=== PATIENT | male | born 1965 | race Caucasian/White ===

== ENCOUNTER 2016-10-28 18:26 | Inpatient (IN) ==
[2016-10-28] MEDS ORDERED: APRESOLINE IV ONE (19:19)
[2016-10-28 19:26] LABS: MANUAL DIFF NEEDED? NO
[2016-10-28 19:33] LABS: BASO% 0.5 % (0.0-0.8); EOS# 0.09 X1000 (0.0-0.7); EOS% 1.6 % (0.0-10.0); HEMATOCRIT 34.3 % (42.0-52.0); HEMOGLOBIN 12.3 g/dL (14.0-18.0); IMM GRAN# 0.02 X1000 (0.0-0.04); IMM GRAN% 0.3 % (0.0-0.5); LYMPH# 1.23 X1000 (1.2-3.4); LYMPH% 21.3 % (20.5-51.1); MCH 29.4 PG (27-31); MCHC 35.9 g/dL (33-37); MCV 82.1 FL (81-99); MONO# 0.44 X1000 (0.11-0.59); MONO% 7.6 % (1.7-9.3); MPV 9.5 FL (7.4-10.4); NEUT% 68.7 % (42.2-75.2); PLT 152 X1000 (130-400); RBC 4.18 XMIL (4.7-6.1)
[2016-10-28 19:43] LABS: INR 0.95 (0.86-1.15)
[2016-10-28 19:44] LABS: PTT PL 28.2 Seconds (22.6-43.9)
[2016-10-28 19:47] LABS: AGAP 10; ALBUMIN 3.6 g/dL (3.5-5.0); ALKALINE PHOSPHATASE 84 U/L (32-122); BUN 13 mg/dL (8-22); CALCIUM 8.8 mg/dL (8.8-10.2); CHLORIDE 79 mmol/L (98-107); COSMO 231; GOT 21 U/L (10-34); GPT 16 U/L (10-44); POTASSIUM 3.9 mmol/L (3.5-5.1); SODIUM 114 mmol/L (136-145); TCO2 25 mmol/L (25-35); TOTAL PROTEIN 5.7 g/dL (6.3-8.3)
[2016-10-28 19:50] LABS: URINE CULTURE PL NEEDED? NO
[2016-10-28 20:06] LABS: UR AMPHETAMINES QUAL NONE DETECTED (NONE DETECT); UR BARBITUATES QUAL NONE DETECTED (NONE DETECT); UR BENZODIAZEPIN QUAL PRESUMPTIVE POSITIVE (NONE DETECT); UR CANNABINOIDS QUAL NONE DETECTED (NONE DETECT); UR COCAINE QUAL NONE DETECTED (NONE DETECT); UR MDMA QUAL NONE DETECTED (NONE DETECT); UR METHADONE QUAL NONE DETECTED (NONE DETECT); UR METHAMPHETAMINE QUAL NONE DETECTED (NONE DETECT); UR OPIATES QUAL NONE DETECTED (NONE DETECT); UR OXYCODONE QUAL NONE DETECTED (NONE DETECT); UR PCP QUAL NONE DETECTED (NONE DETECT); UR TCA QUAL NONE DETECTED (NONE DETECT)
[2016-10-28 20:07] LABS: BILIRUBIN URINE NEGATIVE (NEGATIVE); BLOOD URINE NEGATIVE (NEGATIVE); CLARITY CLEAR (CLEAR); COLOR YELLOW; GLUCOSE URINE NEGATIVE (NEGATIVE); LEUKOCYTES URINE NEGATIVE (NEGATIVE); NITRITE URINE NEGATIVE (NEGATIVE); PH URINE 6.5; PROTEIN URINE 2+(100 mg/dL) mg/dL (NEGATIVE); SP GRAVITY URINE 1.015; UROBILINOGEN URINE 1+(1 mg/dL)
[2016-10-28 20:12] LABS: URINE EPITHELIAL CELLS <10 /HPF (<10); URINE RBC <10 /HPF (<10); URINE SOURCE CLEAN CATCH; URINE WBC <10 /HPF (<10)
--- NOTE | 2016-10-28 20:32 | EKG Report ---
Test Performed on : 10/28/2016 7:10:22 PM Test Reason : chest pain Blood Pressure : / mmHG Vent. Rate : 089 BPM Atrial Rate : 089 BPM P-R Int : 168 ms QRS Dur : 096 ms QT Int : 380 ms P-R-T Axes : 067 048 091 degrees QTc Int : 462 ms Normal sinus rhythm. Possible Left atrial enlargement Left ventricular hypertrophy with repolarization abnormality Abnormal ECG When compared with ECG of 24-JAN-2012 12:26, No significant change was found Unconfirmed Result
[2016-10-28] MEDS ORDERED: NS 1,000 ML ONE (20:44)
[2016-10-28] MEDS ORDERED: NS 1,000 ML IV ONE ×3 (20:47→22:07)
[2016-10-28] MEDS ORDERED: LABETALOL IV ONE (21:35)
[2016-10-28] MEDS ORDERED: DUONEB (A & A) ONE (22:24)
[2016-10-28] MEDS: DUONEB (A & A) INH SCH ×2 (22:28→23:19)
[2016-10-28] MEDS ORDERED: CATAPRES PO PRN (22:42)
[2016-10-29] MEDS: DUONEB (A & A) INH SCH ×5 (04:21→19:45)
--- NOTE | 2016-10-29 07:22 | Diag Imaging Result Document ---
PROCEDURE NAME: HEAD W/O CONTRAST - 10/28/2016 CT BRAIN WITHOUT CONTRAST: FINDINGS: No parenchymal hemorrhage. No epidural or subdural hematoma. No subarachnoid hemorrhage. Old left parietal infarct and temporal infarct. Small old infarct in the right frontoparietal region. Small old left cerebellar infarct. No hydrocephalus. No sinus opacification. No air fluid levels. IMPRESSION: 1. No hemorrhage. 2. Multiple old infarcts. A preliminary report was given at 8:18 p.m.
--- NOTE | 2016-10-29 08:11 | Diag Imaging Result Document ---
PROCEDURE NAME: RIBS UNILAT W/PA CHEST RIGHT - 10/28/2016 RIGHT RIBS AND PA CHEST, 5 VIEWS: COMPARISON: Compared with chest two-views of 02/03/2012. FINDINGS: There is a possible nondisplaced fracture of the lateral right 5th rib. There is no other right rib fracture identified. Heart size is normal. There is tortuosity or ectasia of the ascending aorta. The lungs appear clear. There is no pleural effusion or pneumothorax seen. IMPRESSION: Possible nondisplaced fracture of lateral right 5th rib. No other evidence of acute disease.
[2016-10-29 09:51] LABS: MANUAL DIFF NEEDED? NO
[2016-10-29 09:56] LABS: BASO% 0.2 % (0.0-0.8); EOS# 0.07 X1000 (0.0-0.7); EOS% 1.3 % (0.0-10.0); HEMATOCRIT 32.3 % (42.0-52.0); HEMOGLOBIN 11.3 g/dL (14.0-18.0); IMM GRAN# 0.01 X1000 (0.0-0.04); IMM GRAN% 0.2 % (0.0-0.5); LYMPH# 0.57 X1000 (1.2-3.4); LYMPH% 10.6 % (20.5-51.1); MCH 28.8 PG (27-31); MCV 82.4 FL (81-99); MONO# 0.17 X1000 (0.11-0.59); MONO% 3.2 % (1.7-9.3); NEUT% 84.5 % (42.2-75.2); PLT 158 X1000 (130-400); RBC 3.92 XMIL (4.7-6.1)
[2016-10-29 10:24] LABS: AGAP 12; BUN 14 mg/dL (8-22); CALCIUM 8.1 mg/dL (8.8-10.2); CHLORIDE 85 mmol/L (98-107); COSMO 251; POTASSIUM 3.1 mmol/L (3.5-5.1); SODIUM 121 mmol/L (136-145); TCO2 24 mmol/L (25-35)
--- NOTE | 2016-10-29 11:04 | HISTORY AND PHYSICAL ---
PRIMARY CARE PHYSICIAN: None. CHIEF COMPLAINT: Frequent falls. HISTORY OF PRESENTING ILLNESS: This is a 51-year-old male, who presented to [facility] ER after he states he had a fall at home yesterday. Stated he did not lose consciousness and did not hit his head. His story is somewhat conflicting in that he states that he does not have a primary care physician, moved here from [place] approximately a year ago. States that he has not been taking his home medications, but stated something about getting them from his sister. It is unclear if she has his medications and has been dispensing them, but nonetheless he has not had any follow up. Apparently, had a stroke with right hemiparesis x2 a couple years ago. Has had decreased fine motor skills since then. Workup in the ER showed on arrival a blood pressure of 227/113. Laboratory data showed a sodium of 114 with a chloride of 79. Troponin was negative. Urine drug screen was presumptive positive for benzodiazepines. Again, he listed as a home medication Xanax 1 mg p.o. at bedtime, but it is unclear if he has been getting refills anywhere (he states no). So, in the ER it appears he was given 2 L of normal saline boluses, 10 mg labetalol IV x1, hydralazine 20 mg IV x1. He was admitted for further evaluation and treatment. PAST MEDICAL HISTORY: CVA with right hemiparesis, hypertension, anxiety and chronic pain. PAST SURGICAL HISTORY: None. FAMILY HISTORY: Noncontributory. SOCIAL HISTORY: Currently lives with family. He is a 2 pack-a-day smoker. Denied any alcohol or illicit drug use. ALLERGIES: To acetaminophen, butalbital, caffeine. HOME MEDICATIONS: It is unclear if this is a completed list of what he is currently taking or what he has been on in the past, but he listed: 1. Xanax 1 mg p.o. at bedtime. 2. Baxley 10 1 p.o. t.i.d. 3. Aspirin 81 mg p.o. at bedtime. 4. Catapres 0.1 mg p.o. at bedtime. 5. Lisinopril 10 mg p.o. at bedtime. LABORATORY DATA: Showed a white blood cell count of 5.78, hemoglobin 12.3, hematocrit 34.3, platelets 152. PT and INR of 13.0 and 0.95. Sodium of 114, potassium 3.9, chloride 79, CO2 25, BUN of 13, creatinine 0.8, glucose of 90. Troponin less than 0.010. Urinalysis was negative. Urine osmolality at 637, random sodium urine 130. Urine drug screen was presumptive positive for benzodiazepines. Serum alcohol level shows none detected. IMAGING DATA: CT of the head showed no hemorrhage and multiple old infarcts. Rib with chest x- ray showed an impression of a possible nondisplaced fracture of the lateral right fifth rib. No other evidence of acute disease. EKG with normal sinus rhythm at 89. REVIEW OF SYSTEMS: He denies any fever, chills, blurred vision, dizziness, chest pain, coughing, shortness of breath. He denies any constipation, diarrhea, burning, or hurting with urination. PHYSICAL EXAMINATION: VITAL SIGNS: On arrival, he had a temperature of 97.9 degrees, a pulse of 104, respirations 18, blood pressure 227/113. Currently he has a temperature of 97.8 degrees, pulse 88, respirations 18, blood pressure is 167/89, satting 99% on room air. GENERAL: This is a 51-year-old male, who is lying in the bed and answers questions appropriately, but answers are sometimes conflicting and difficulty to get a complete timeline of history. HEENT: Normocephalic and atraumatic. Pupils are equal, round, and reactive to light. The extraocular movements are intact. Oropharynx and nares are clear. NECK: Supple. LUNGS: Clear to auscultation bilaterally with equal lung expansion and chest wall movement. HEART: With regular rate and rhythm. No murmurs, rubs, or gallops. ABDOMEN: Soft, nontender, nondistended. Bowel sounds are present x4 quadrants. EXTREMITIES: There is no clubbing, cyanosis, or edema. NEUROLOGICAL: The cranial nerves 2-12 are grossly intact with noted right hemiparesis from his previous cerebrovascular accident. ASSESSMENT: 1. Accelerated hypertension, uncontrolled. 2. Hyponatremia. 3. A right fifth rib fracture. 4. Transient ischemic attack versus new cerebrovascular accident. 5. Fall. PLAN: He was admitted to the medical unit at [facility]. Placed on telemetry. Neuro checks q. 24 for 24 hours. Placed on a healthy heart diet. We are going to continue his home medication of Catapres 0.1 mg at bedtime and Prinivil 10 mg p.o. at bedtime, aspirin 81 mg p.o. at bedtime. We are going to hold the Xanax and Baxley routinely. We will give him some Baxley p.r.n. 10 mg q. 4 hours p.r.n. for his right rib fracture and pain. Continue his normal saline at 75 mL an hour. We will go ahead and check an MRI of his brain this morning to rule out the fall was caused from any new stroke, as it appears that he has not been taking his home medications appropriately. It is really unclear why his sodium had dropped. We are going to recheck a CBC, BMP this a.m. and repeat in the a.m. also. Dictated by NICHOL Padron for Leodan Chao MD cc: NICHOL Padron MD
--- NOTE | 2016-10-29 13:59 | Diag Imaging Result Document ---
PROCEDURE NAME: MRI BRAIN W/O CONTRAST - 10/29/2016 MRI BRAIN: COMPARISON: Head CT 10/28/2016. FINDINGS: There is no area of restricted diffusion. There are old cerebral infarctions at the lateral right frontal lobe, left parietal lobe, and left cerebellar hemisphere. There is moderate periventricular white matter chronic microvascular disease. No evidence of intracranial mass or hemorrhage. Midline structures are unremarkable. IMPRESSION: Bilateral old acute infarctions. Chronic microvascular disease. No acute disease.
[2016-10-29] MEDS ORDERED: DUONEB (A & A) INH PRN (17:33)
[2016-10-29] MEDS ORDERED: KLOR-CON PO ONE (17:40)
--- NOTE | 2016-10-29 18:02 | PROGRESS NOTE ---
DATE: 10/29/2016 SUBJECTIVE: Today Mr. Singh refers to be doing relatively fine but he is hurting. OBJECTIVE: Vital signs: Blood pressure is 147/81, pulse of 91, respiration is 20, temperature is 98.9 degrees. General: Mr. Singh is a 51-year-old male. He was in bed. He looks relatively dry. HEENT: Mucosa is pink but dry. Anicteric and acyanotic. Neck: Supple. Chest: There is diffuse bilateral wheezing in both lungs. No crepitations. Cardiovascular: Regular rate and rhythm. No murmurs, no rubs, no gallops. Abdomen: Soft, nontender. Extremities: No pedal edema. GUN WELDER: Patient is alert. Does have a little stuttering in the speech but he seems to follow commands. Musculoskeletal: There is some tenderness over the left posterior ribcage. GUN WELDER: There is also about 4- power in the right upper extremity. Left side is normal power 5/5. LABORATORY DATA: WBC is 5.39, hemoglobin is 11.3, platelet count of 158,000. Chemistry is reviewed. Sodium is up to 131, potassium is 3.1, chloride is 85, bicarb is 24. Glucose is 207. The calcium is 81. ASSESSMENT: Mr. Singh was brought in last night status post fall, upon presentation was found to be severely dehydrated with a sodium of 114. ASSESSMENT: 1. Status post fall. Chest x-ray shows possible nondisplaced fracture of the lateral right 5th rib. No pneumothorax. No pleural effusions. We are going to continue with pain management. 2. Severe hypertension (hypertensive urgency on presentation). The patient's blood pressure was 227/113 when he hit the door. He is currently much better. We will continue with the current blood pressure medications. 3. Clinical dehydration. 4. Hyponatremia in the context of upon volume depletion. We are going to continue with IV fluids until patient is euvolemic and then we can reassess. 5. History of previous CVA with mild right-sided hemiparesis. An MRI which was done today shows bilateral old acute infarcts. There is no acute disease. 6. Bronchospasm. Patient has a history of more than 20 pack years and I am suspecting he does have underlying COPD which probably has not been diagnosed. We are going to continue with nebulization and chest physical therapy with incentive spirometer to help with the bronchospasm. We would advise the patient to follow up with Pulmonary Medicine. 7. Tobacco abuse. Patient has been counseled and will offer nicotine patch. 8. Hypocalcemia. I suspect patient probably has an underlying vitamin D deficiency as well. I will go ahead and check on that and correct it if necessary. 9. Hypokalemia. We will replace. cc: Leodan Chao MD
[2016-10-29] MEDS: NS 1,000 ML IV SCH (18:15)
[2016-10-29] MEDS: CATAPRES PO SCH (20:28)
[2016-10-29] MEDS: ASPIRIN EC PO SCH (20:28)
[2016-10-29] MEDS: PRINIVIL PO SCH (20:28)
[2016-10-29] MEDS ORDERED: XANAX PO SCH (21:00)
[2016-10-29] MEDS: XANAX PO SCH (21:47)
[2016-10-30] MEDS: DUONEB (A & A) INH SCH ×6 (04:19→22:55)
[2016-10-30 06:10] LABS: MANUAL DIFF NEEDED? NO
[2016-10-30 06:39] LABS: BASO% 0.5 % (0.0-0.8); EOS# 0.13 X1000 (0.0-0.7); EOS% 3.2 % (0.0-10.0); HEMATOCRIT 30.7 % (42.0-52.0); HEMOGLOBIN 10.8 g/dL (14.0-18.0); LYMPH# 0.86 X1000 (1.2-3.4); LYMPH% 21.3 % (20.5-51.1); MCH 29.1 PG (27-31); MCHC 35.2 g/dL (33-37); MCV 82.7 FL (81-99); MONO# 0.33 X1000 (0.11-0.59); MONO% 8.2 % (1.7-9.3); NEUT% 66.8 % (42.2-75.2); PLT 172 X1000 (130-400); RBC 3.71 XMIL (4.7-6.1)
[2016-10-30 07:25] LABS: AGAP 10; BUN 12 mg/dL (8-22); CALCIUM 8.3 mg/dL (8.8-10.2); CHLORIDE 89 mmol/L (98-107); COSMO 243; POTASSIUM 4.2 mmol/L (3.5-5.1); SODIUM 121 mmol/L (136-145); TCO2 22 mmol/L (25-35)
[2016-10-30] MEDS: VITAMIN D PO SCH (08:40)
[2016-10-30] MEDS: NORCO-10 PO PRN ×4 (08:49→23:40)
[2016-10-30] MEDS: NS 1,000 ML IV SCH (10:28)
[2016-10-30] MEDS ORDERED: SAMSCA PO ONE (11:13)
--- NOTE | 2016-10-30 12:03 | PROGRESS NOTE ---
DATE: 10/30/2016 SUBJECTIVE: When I evaluated this patient he was sitting on the bed. He was eating. He is not having problems eating. He denies nausea, vomiting, diarrhea, constipation. He is alert and oriented x3. He has a history of CVA 2-1/2 years ago with right-sided weakness around 3/5. He states that the reason why he came was because he fell and he got a fracture on the right 5th rib. He denied any dizziness or palpation previous to the fall. OBJECTIVE: Vital Signs: Temperature 98.6. Pulse 93, respiratory rate 20, blood pressure 144/90, O2 saturation 96 on room air. General: Overall this patient looks good, hydrated. He is still complaining of mild right chest pain secondary to the fracture. He is not having shortness of breath, dizziness, mental status changes. HEENT: Head normocephalic. No trauma. PERRLA. Neck: Supple. No JVD. No masses. Central trachea. Chest: Clear to auscultation. No wheezing. No rales. Painful to palpation at the level of the left thoracic area. Abdomen: Soft, nontender, nondistended. No hepatosplenomegaly. Extremities: No edema. No clubbing. No cyanosis. Neurological: The patient is alert and oriented x3. He has a right-sided weakness around 3 to 4/5. LABORATORY: WBC 4, hemoglobin 10.8, hematocrit 30.7, platelets 172,000. Sodium 121, potassium 4.2, chloride 89, bicarbonate 22, BUN 12, creatinine 0.7, glucose 91, calcium 8.3. ASSESSMENT AND PLAN: 1. Status post fall. Chest x-rayed showed possible nondisplaced fracture of the lateral right 5th rib. No pneumothorax. This patient is breathing fine. He is complaining of pain but he is not having respiratory distress. 2. Hypertension. I will stop the IV fluids. This patient looks hydrated. He is eating fine. I will continue with his home medications. Upon admission his blood pressure was around 220/110. At this moment this patient is around 140/90. We will continue with the same medication and I will stop the normal saline. 3. Hyponatremia. This patient was already hydrated. He is tolerating p.o. I will stop the normal saline. We do not have a baseline sodium on this patient, his sodium is 121 and compared with yesterday it is about the same. I stopped already normal saline and I will give this patient 1 dose of Samsca. I will continue to monitor. 4. History of previous CVA with right-sided hemiparesis. No acute the lesions on the MRI. Continue to monitor. 5. Tobacco abuse. This patient has been highly advised against tobacco use. I will continue with daily cessation education. 6. Hypocalcemia probably secondary to vitamin D deficiency. Continue with the same management. 7. Hypokalemia resolved. cc: Ramon Messer MD
[2016-10-30] MEDS: CATAPRES PO SCH (20:25)
[2016-10-30] MEDS: PRINIVIL PO SCH (20:25)
[2016-10-30] MEDS: ASPIRIN EC PO SCH (20:25)
[2016-10-30] MEDS: XANAX PO SCH (20:25)
[2016-10-31] MEDS: DUONEB (A & A) INH SCH ×2 (04:00→07:30)
[2016-10-31 06:11] LABS: AGAP 11; BUN 15 mg/dL (8-22); CALCIUM 8.7 mg/dL (8.8-10.2); CHLORIDE 99 mmol/L (98-107); COSMO 266; POTASSIUM 3.7 mmol/L (3.5-5.1); SODIUM 133 mmol/L (136-145); TCO2 24 mmol/L (25-35)
[2016-10-31] MEDS: VITAMIN D PO SCH (09:47)
[2016-10-31] MEDS: NORCO-10 PO PRN (09:48)
[2016-10-31 11:45] VITALS: BP 146/76
--- NOTE | 2016-10-31 17:48 | DISCHARGE SUMMARY ---
ADMISSION DATE: 10/28/2016 DISCHARGE DATE: 10/31/2016 ADMISSION DIAGNOSES: 1. Accelerated hypertension uncontrolled. 2. Hyponatremia. 3. A 5th right rib fracture. 4. Transient ischemic attack versus cerebrovascular accident. 5. Fall. DISCHARGE DIAGNOSES: 1. Nondisplaced right 5th rib fracture. 2. Hypertension. 3. Hyponatremia resolved. 4. History of a previous cerebrovascular accident with right-sided hemiparesis. No new acute lesions on MRI. 5. Hypokalemia resolved. 6. Hypocalcemia. 7. Tobacco abuse. SUMMARY OF FINDINGS: This is a 51-year-old male who presented to [facility] ER stating that he had a fall at home yesterday, states he did not lose consciousness and did not hit his head. He states he had been taking his home medications but there was little conflicting story as he states he moved here from [place] about a year ago but that he did not have a primary care physician now that he has moved to [place] so it is unsure that he has truly been taking his medications. He had a stroke with right hemiparesis x2 a couple years ago, had decreased fine motor skills since then. He had an elevated blood pressure on arrival of 227/113. Had a sodium of 114 with a chloride of 79, negative troponins. Urine drug screen was presumptive positive for benzodiazepines and stated that at home he was taking Xanax 1 mg p.o. at bedtime. He was given 2 L of normal saline boluses in the ER, 10 mg of labetalol IV, hydralazine 20 mg IV x1 and he was admitted. We obtained a rib with chest x-ray that showed a nondisplaced fracture of the lateral right 5th rib, otherwise no evidence of acute disease. We obtained a head CT that showed no hemorrhage and multiple old infarcts. We obtained a brain MRI that showed bilateral old acute infarctions, no acute disease, chronic microvascular disease. His blood pressures have improved today, he is at 145/84. We continued him on his clonidine 0.1 mg p.o. at bedtime, lisinopril 10 mg p.o. at bedtime. His sodium did not initially improve enough, when he came in he was 114 and came up the next a.m. to 121. He was given a dose of Samsca yesterday and today his sodium is back to 133 so is now felt that he can safely be discharged home. DISCHARGE MEDICATIONS: He can continue his Xanax 1 mg p.o. at bedtime, aspirin 81 mg p.o. at bedtime, vitamin D3 1000 units p.o. daily, Catapres 0.1 mg p.o. at bedtime, Flushing 10 one p.o. q.6 hours p.r.n. #20 with no refills, lisinopril 10 mg p.o. at bedtime. FOLLOWUP: He will need to obtain primary care physician. Will provide him with the physician referral line to follow up. A 35-minute discharge. Dictated by NICHOL Padron for Ramon Messer MD cc: NICHOL Padron MD
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
== END 2016-10-31 12:00 | disposition home or self-care (01) ==
LOC: P.ED 18:26 → SUATTDRO 22:34 → P.MEDSURG 22:34
PROVIDERS: ATTEND Internal Medicine

== ENCOUNTER 2016-11-20 14:27 | Inpatient (IN) ==
[2016-11-20] MEDS ORDERED: DUONEB (A & A) INH ONE (16:24)
--- NOTE | 2016-11-20 16:33 | PROVIDER DOCUMENTATION ---
Addendum entered and electronically signed by Pretty Hinkle PA 11/21/16 09 :16: Additional Progress - ADDITIONAL PLAN OF CARE/RESULTS Additional Progress/Plan/Lab Results: Laboratory Tests 11/20/16 11/20/16 11/20/16 16:30 16:30 16:30 WBC 4.89 RBC 4.79 Hgb 14.4 Hct 36.7 L MCV 76.6 L MCH 30.1 MCHC 39.2 H RDW Std Deviation 12.5 Plt Count 189 MPV 10.1 Immature Gran % (Auto) 0.0 Neut % (Auto) 63.9 Lymph % (Auto) 23.7 [place] % (Auto) 11.2 H Eos % (Auto) 1.0 Baso % (Auto) 0.2 Immature Gran # (Auto) 0.00 Neut # (Auto) 3.12 Lymph # (Auto) 1.16 L [place] # (Auto) 0.55 Eos # (Auto) 0.05 Baso # (Auto) 0.01 PT INR PTT (Actin FS) Specimen Type Sample Site pH pCO2 pO2 HCO3 Base Excess Oxyhemoglobin ABG O2 Sat (Calculated) ABG O2 Saturation ABG Carboxyhemoglobin ABG Methemoglobin Sam Test A-a O2 Difference Total Hemoglobin Lactate Blood Gas Modality FiO2 % Sodium 111 L* Potassium 3.9 Chloride 72 L Carbon Dioxide 25 Anion Gap 12 BUN 8 Creatinine 0.8 Estimated GFR/1.73 m2 > 60 BUN/Creatinine Ratio 10 Glucose 104 Serum Osmolality Calculated Osmolality 220 Calcium 8.6 L Magnesium Iron TIBC % Saturation Unsat Iron Binding Total Bilirubin 1.10 H AST 19 ALT 12 Alkaline Phosphatase 151 H Creatine Kinase 78 Troponin T Total Protein 5.7 L Albumin 3.9 Globulin 1.8 Albumin/Globulin Ratio 2.2 Urine Source Urine Color Urine Turbidity Urine pH Ur Specific [place] Urine Protein Ur Glucose (Stick) Ur Ketones (Stick) Urine Blood Urine Nitrite Urine Bilirubin Urobilinogen Dipstick Urine Leukocytes Urine WBC (Auto) Urine RBC (Auto) U Epithel Cells (Auto) Urine Bacteria (Auto) Urine Osmolality Ur Random Sodium Urine Opiates Screen Ur Oxycodone Screen Ur Methadone, Qual Ur Barbiturates Screen Ur Phencyclidine Scrn Ur Amphetamines Screen U Benzodiazepines Scrn Urine Cocaine Screen U Cannabinoids Screen Plasma/Serum Ethyl Alc 11/20/16 11/20/16 11/20/16 16:30 16:30 16:45 WBC RBC Hgb Hct MCV MCH MCHC RDW Std Deviation Plt Count MPV Immature Gran % (Auto) Neut % (Auto) Lymph % (Auto) [place] % (Auto) Eos % (Auto) Baso % (Auto) Immature Gran # (Auto) Neut # (Auto) Lymph # (Auto) [place] # (Auto) Eos # (Auto) Baso # (Auto) PT 10.4 INR 0.99 PTT (Actin FS) 29.6 Specimen Type ARTERIAL Sample Site R RADIAL pH 7.43 pCO2 37 pO2 68 HCO3 25.1 Base Excess 0.5 Oxyhemoglobin 90.5 L ABG O2 Sat (Calculated) 18.3 ABG O2 Saturation 97.4 ABG Carboxyhemoglobin 5.20 H* ABG Methemoglobin 1.9 H Sam Test YES A-a O2 Difference 35.0 Total Hemoglobin 14.4 Lactate 0.60 Blood Gas Modality ROOM AIR FiO2 % 21.0 Sodium Potassium Chloride Carbon Dioxide Anion Gap BUN Creatinine Estimated GFR/1.73 m2 BUN/Creatinine Ratio Glucose Serum Osmolality Calculated Osmolality Calcium Magnesium Iron TIBC % Saturation Unsat Iron Binding Total Bilirubin AST ALT Alkaline Phosphatase Creatine Kinase Troponin T < 0.010 Total Protein Albumin Globulin Albumin/Globulin Ratio Urine Source Urine Color Urine Turbidity Urine pH Ur Specific [place] Urine Protein Ur Glucose (Stick) Ur Ketones (Stick) Urine Blood Urine Nitrite Urine Bilirubin Urobilinogen Dipstick Urine Leukocytes Urine WBC (Auto) Urine RBC (Auto) U Epithel Cells (Auto) Urine Bacteria (Auto) Urine Osmolality Ur Random Sodium Urine Opiates Screen Ur Oxycodone Screen Ur Methadone, Qual Ur Barbiturates Screen Ur Phencyclidine Scrn Ur Amphetamines Screen U Benzodiazepines Scrn Urine Cocaine Screen U Cannabinoids Screen Plasma/Serum Ethyl Alc 11/20/16 11/20/16 11/20/16 19:02 19:02 19:02 WBC RBC Hgb Hct MCV MCH MCHC RDW Std Deviation Plt Count MPV Immature Gran % (Auto) Neut % (Auto) Lymph % (Auto) [place] % (Auto) Eos % (Auto) Baso % (Auto) Immature Gran # (Auto) Neut # (Auto) Lymph # (Auto) [place] # (Auto) Eos # (Auto) Baso # (Auto) PT INR PTT (Actin FS) Specimen Type Sample Site pH pCO2 pO2 HCO3 Base Excess Oxyhemoglobin ABG O2 Sat (Calculated) ABG O2 Saturation ABG Carboxyhemoglobin ABG Methemoglobin Sam Test A-a O2 Difference Total Hemoglobin Lactate Blood Gas Modality FiO2 % Sodium Potassium Chloride Carbon Dioxide Anion Gap BUN Creatinine Estimated GFR/1.73 m2 BUN/Creatinine Ratio Glucose Serum Osmolality Calculated Osmolality Calcium Magnesium Iron TIBC % Saturation Unsat Iron Binding Total Bilirubin AST ALT Alkaline Phosphatase Creatine Kinase Troponin T Total Protein Albumin Globulin Albumin/Globulin Ratio Urine Source CATH Urine Color YELLOW Urine Turbidity CLEAR Urine pH 6.5 Ur Specific [place] 1.019 Urine Protein 100 A Ur Glucose (Stick) NEGATIVE Ur Ketones (Stick) NEGATIVE Urine Blood NEGATIVE Urine Nitrite NEGATIVE Urine Bilirubin NEGATIVE Urobilinogen Dipstick 4 A Urine Leukocytes NEGATIVE Urine WBC (Auto) <10 Urine RBC (Auto) <10 U Epithel Cells (Auto) <10 Urine Bacteria (Auto) NEGATIVE Urine Osmolality Ur Random Sodium 51 Urine Opiates Screen NONE DETECTED Ur Oxycodone Screen NONE DETECTED Ur Methadone, Qual NONE DETECTED Ur Barbiturates Screen NONE DETECTED Ur Phencyclidine Scrn NONE DETECTED Ur Amphetamines Screen NONE DETECTED U Benzodiazepines Scrn PRESUMPTIVE POSITIVE A Urine Cocaine Screen NONE DETECTED U Cannabinoids Screen NONE DETECTED Plasma/Serum Ethyl Alc 11/20/16 11/20/16 11/20/16 20:23 20:23 20:23 WBC RBC Hgb Hct MCV MCH MCHC RDW Std Deviation Plt Count MPV Immature Gran % (Auto) Neut % (Auto) Lymph % (Auto) [place] % (Auto) Eos % (Auto) Baso % (Auto) Immature Gran # (Auto) Neut # (Auto) Lymph # (Auto) [place] # (Auto) Eos # (Auto) Baso # (Auto) PT INR PTT (Actin FS) Specimen Type Sample Site pH pCO2 pO2 HCO3 Base Excess Oxyhemoglobin ABG O2 Sat (Calculated) ABG O2 Saturation ABG Carboxyhemoglobin ABG Methemoglobin Sam Test A-a O2 Difference Total Hemoglobin Lactate Blood Gas Modality FiO2 % Sodium 110 L* Potassium 3.4 L Chloride 75 L Carbon Dioxide 25 Anion Gap 10 BUN 8 Creatinine 0.7 Estimated GFR/1.73 m2 > 60 BUN/Creatinine Ratio 11 Glucose 89 Serum Osmolality 223 L Calculated Osmolality 221 Calcium 8.2 L Magnesium Iron TIBC % Saturation Unsat Iron Binding Total Bilirubin AST ALT Alkaline Phosphatase Creatine Kinase Troponin T Total Protein Albumin Globulin Albumin/Globulin Ratio Urine Source Urine Color Urine Turbidity Urine pH Ur Specific [place] Urine Protein Ur Glucose (Stick) Ur Ketones (Stick) Urine Blood Urine Nitrite Urine Bilirubin Urobilinogen Dipstick Urine Leukocytes Urine WBC (Auto) Urine RBC (Auto) U Epithel Cells (Auto) Urine Bacteria (Auto) Urine Osmolality 550 Ur Random Sodium Urine Opiates Screen Ur Oxycodone Screen Ur Methadone, Qual Ur Barbiturates Screen Ur Phencyclidine Scrn Ur Amphetamines Screen U Benzodiazepines Scrn Urine Cocaine Screen U Cannabinoids Screen Plasma/Serum Ethyl Alc 11/20/16 11/21/16 11/21/16 20:23 01:13 04:50 WBC RBC Hgb Hct MCV MCH MCHC RDW Std Deviation Plt Count MPV Immature Gran % (Auto) Neut % (Auto) Lymph % (Auto) [place] % (Auto) Eos % (Auto) Baso % (Auto) Immature Gran # (Auto) Neut # (Auto) Lymph # (Auto) [place] # (Auto) Eos # (Auto) Baso # (Auto) PT INR PTT (Actin FS) Specimen Type Sample Site pH pCO2 pO2 HCO3 Base Excess Oxyhemoglobin ABG O2 Sat (Calculated) ABG O2 Saturation ABG Carboxyhemoglobin ABG Methemoglobin Sam Test A-a O2 Difference Total Hemoglobin Lactate Blood Gas Modality FiO2 % Sodium 112 L* 118 L* Potassium 3.8 3.9 Chloride 76 L 81 L Carbon Dioxide 21 L 26 Anion Gap 15 11 BUN 7 L 7 L Creatinine 0.6 L 0.8 Estimated GFR/1.73 m2 > 60 > 60 BUN/Creatinine Ratio 12 9 Glucose 85 96 Serum Osmolality Calculated Osmolality 225 236 Calcium 8.2 L 8.7 L Magnesium 1.5 Iron TIBC % Saturation Unsat Iron Binding Total Bilirubin AST ALT Alkaline Phosphatase Creatine Kinase Troponin T Total Protein Albumin Globulin Albumin/Globulin Ratio Urine Source Urine Color Urine Turbidity Urine pH Ur Specific [place] Urine Protein Ur Glucose (Stick) Ur Ketones (Stick) Urine Blood Urine Nitrite Urine Bilirubin Urobilinogen Dipstick Urine Leukocytes Urine WBC (Auto) Urine RBC (Auto) U Epithel Cells (Auto) Urine Bacteria (Auto) Urine Osmolality Ur Random Sodium Urine Opiates Screen Ur Oxycodone Screen Ur Methadone, Qual Ur Barbiturates Screen Ur Phencyclidine Scrn Ur Amphetamines Screen U Benzodiazepines Scrn Urine Cocaine Screen U Cannabinoids Screen Plasma/Serum Ethyl Alc 11/21/16 11/21/16 11/21/16 04:50 04:50 08:24 WBC 4.99 RBC 4.45 L Hgb 13.4 L Hct 34.6 L MCV 77.8 L MCH 30.1 MCHC 38.7 H RDW Std Deviation 12.5 Plt Count 155 MPV 10.2 Immature Gran % (Auto) 0.0 Neut % (Auto) 60.7 Lymph % (Auto) 30.1 [place] % (Auto) 8.4 Eos % (Auto) 0.8 Baso % (Auto) 0.0 Immature Gran # (Auto) 0.00 Neut # (Auto) 3.03 Lymph # (Auto) 1.50 [place] # (Auto) 0.42 Eos # (Auto) 0.04 Baso # (Auto) 0.00 PT INR PTT (Actin FS) Specimen Type Sample Site pH pCO2 pO2 HCO3 Base Excess Oxyhemoglobin ABG O2 Sat (Calculated) ABG O2 Saturation ABG Carboxyhemoglobin ABG Methemoglobin Sam Test A-a O2 Difference Total Hemoglobin Lactate Blood Gas Modality FiO2 % Sodium Potassium Chloride Carbon Dioxide Anion Gap BUN Creatinine Estimated GFR/1.73 m2 BUN/Creatinine Ratio Glucose Serum Osmolality Calculated Osmolality Calcium Magnesium 1.6 Iron 134 TIBC 311 % Saturation 43 Unsat Iron Binding 177 Total Bilirubin AST ALT Alkaline Phosphatase Creatine Kinase Troponin T Total Protein Albumin Globulin Albumin/Globulin Ratio Urine Source Urine Color Urine Turbidity Urine pH Ur Specific [place] Urine Protein Ur Glucose (Stick) Ur Ketones (Stick) Urine Blood Urine Nitrite Urine Bilirubin Urobilinogen Dipstick Urine Leukocytes Urine WBC (Auto) Urine RBC (Auto) U Epithel Cells (Auto) Urine Bacteria (Auto) Urine Osmolality Ur Random Sodium Urine Opiates Screen Ur Oxycodone Screen Ur Methadone, Qual Ur Barbiturates Screen Ur Phencyclidine Scrn Ur Amphetamines Screen U Benzodiazepines Scrn Urine Cocaine Screen U Cannabinoids Screen Plasma/Serum Ethyl Alc Original Note: HPI-General Adult - General Chief Complaint: Weakness Stated Complaint: FALL Time Seen by Provider: 11/20/16 16:14 Source: patient Allergies/Adverse Reactions: Patient Allergies Allergy/AdvReac Type Severity Reaction Status Date / Time acetaminophen [From Fioricet] Allergy other Verified 11/20/16 17:15 butalbital [From Fioricet] Allergy other Verified 11/20/16 17:15 caffeine [From Fioricet] Allergy other Verified 11/20/16 17:14 Home Medications: Home Medication List Medication Instructions Recorded Confirmed Last Taken Type LISINOpril [Prinivil] 10 mg PO QHS 10/28/16 11/20/16 11/20/16 08:00 History Aspirin [Aspir-Low] 81 mg PO QHS 10/29/16 11/20/16 11/19/16 21:00 History Cholecalciferol (Vit D3) [Vitamin 1,000 unit PO DAILY #30 tablet 10/31/1611/20/16 08:00 Rx D3] Hydrocodone/APAP 10 mg/325 mg 1 each PO Q6H PRN PRN #20 tablet 10/31/16 Unknown Rx [[place]-10] Alprazolam [Xanax] 1 mg PO BID 11/20/16 11/20/16 11/20/16 08:00 History Escitalopram [Lexapro] 10 mg PO DAILY 11/20/16 11/20/16 11/20/16 08:00 History - History of Present Illness -Gen Adult Nature of Presenting Problems: 51 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 Was seen at [facility] and admitted for hyponatremia. Gave Vitamin D to go home on with no improvement. He was normal about 6 months ago, and has been declining since then. Having weightloss of 22 pounds in 2 months, with decreased appetite. He has started to not be able to ambulate on his own now. Denies chest pain or sob. Denies abdominal pain, n/v/d. Patient states the only thing worsening is his cough. He has a chronic cough from smoking, which in 1 week has worsened. Denies fevers or chills. Review of Systems - Adult - REVIEW OF SYSTEMS - ADULT Constitutional: reports: no symptoms reported. denies: chills, fever, [place]ique Eyes: reports: no symptoms reported. denies: decreased vision, blurred vision, double vision, eye pain Ears, Nose, Mouth & Throat: reports: no symptoms reported. denies: ear pain, nose pain, throat pain Cardiovascular: reports: no symptoms reported. denies: chest pain, irregular heart rate, palpitations Respiratory: reports: see HPI, cough. denies: shortness of breath, wheezing Gastrointestinal: reports: no symptoms reported. denies: abdominal pain, diarrhea, nausea, vomiting Genitourinary: reports: no symptoms reported. denies: dysuria, discharge, frequency, incontinence Musculoskeletal: reports: no symptoms reported. denies: bone pain, back pain, muscle aches Integumentary: reports: no symptoms reported. denies: rash Neurological: reports: no symptoms reported. denies: headache/migraines Psychiatric: reports: no symptoms reported Endocrine: reports: no symptoms reported Hematologic/Lymphatic: reports: no symptoms reported Allergic/Immunologic: reports: no symptoms reported All Other Systems: Reviewed and Negative Past History - Adult - PAST MEDICAL HISTORY-ADULT Review of Records: reports: Old Records Reviewed, Nursing Assessment Review, Medications Reviewed, Social history reviewed & non-contributory. Major Childhood Illnesses: reports: denies history Cardiovascular: reports: denies history Respiratory: reports: denies history Gastrointestinal: reports: denies history Genitourinary: reports: denies history Musculoskeletal: reports: denies history Neurological: reports: denies history Endocrine/Immune: reports: denies history Other Conditions: reports: denies history - IMMUNIZATION STATUS Childhood Immunizations: See Nurse Assessment Flu Vaccine: See Nurse Assessment - FAMILY HISTORY Family History: reviewed, not pertinent Physical Exam-General - PHYSICAL EXAM-ADULT Initial Vital Signs Reviewed: Yes - CONSTITUTIONAL General Appearance: appears well, alert, no apparent distress, cachetic, thin - EYES Eyes: PERRL/EOMI, pink conjunctivae - HEAD, EARS, NOSE, MOUTH & THROAT HENMT: normocephalic/atraumatic, moist mucous membranes, normal ENT inspection - NECK Neck: non-tender, full range of motion, supple, normal inspection - RESPIRATORY Respiratory: chest non-tender, no pleuratic chest pain, no respiratory distress , no accessory muscle use, wheezing (generalized). negative: respiratory distress, decreased breath sounds, accessory muscle use, crackles, rales, rhonchi - CARDIOVASCULAR Cardiovascular: normal peripheral pulses, regular rate, rhythm. negative: bradycardia - GASTROINTESTINAL (ABDOMEN) Abdominal Exam: normal bowel sounds, non tender, soft, no organomegaly, no pulsatile mass. negative: abdominal bruit, abnormal bowel sounds, distended, guarding, rigid, rebound, tenderness - LYMPHATIC Lymphatic: no adenopathy - MUSCULOSKELETAL Extremity: normal range of motion, non-tender Peripheral Pulses: radial (R): 2+, radial (L): 2+, dorsalis-pedis (R): 2+, dorsalis-pedis (L): 2+ - SKIN Integumentary: normal color, normal turgor, warm/dry - NEUROLOGIC Neurologic: grossly normal, no motor/sensory deficits - PSYCHIATRIC Psych/Mental Status: normal mood/affect, normal thought content, normal thought process, oriented x 3 Progress - PLAN OF CARE/RESULTS Progress/Plan/Lab Results: Vital Signs - 8 hr 11/20/16 14:57 Temperature 97.6 F Pulse Rate 97 H Respiratory Rate 18 Blood Pressure 142/96 O2 Sat by Pulse Oximetry 99 Orders Category Date Time Status Cardiac Monitoring DIRECTED Care 11/20/16 16:15 Active Finger Stick Blood Sugar (ED) DIRECTED Care 11/20/16 16:15 Active Oxygen Therapy- ED Nursing DIRECTED Care 11/20/16 16:15 Active Saline Loc NOW Care 11/20/16 16:15 Active CHEST-2 VIEWS [RAD] Stat Exams 11/20/16 16:24 Ordered ALCOHOL BLOOD Stat Lab 11/20/16 16:15 Uncollected CBC WITH ELECTRONIC DIFF [HEME] Stat Lab 11/20/16 16:15 Uncollected CK PROFILE [SP CHEM] Stat Lab 11/20/16 16:15 Uncollected COMPREHENSIVE METABOLIC PANEL [CHEM] Stat Lab 11/20/16 16:15 Uncollected PROTIME WITH INR [COAG] Stat Lab 11/20/16 16:15 Uncollected PTT [COAG] Stat Lab 11/20/16 16:15 Uncollected TROPONIN T Stat Lab 11/20/16 16:15 Uncollected URINALYSIS W/POSS RFLX CULT-1 [URINALYSIS] Stat Lab 11/20/16 16:15 Uncollected URINE DRUG SCREEN Stat Lab 11/20/16 16:15 Uncollected Albuterol 2.5MG/Ipratrop 0.5MG [Duoneb (A & A)] Med 11/20/16 16:24 Discontinued 3 ml INH NOW ONE Aerosol Treatments Routine Oth 11/20/16 16:24 Active Aerosol Treatments Stat Oth 11/20/16 16:24 Active Pulse Oximetry Stat Oth 11/20/16 16:15 Active EKG [EKG] Stat Ther 11/20/16 15:00 Ordered Result Diagrams: 11/20/16 16:30 11/20/16 16:30 - XRAY 1 XRAY: Bilateral XRAY Study: Chest Impression: Normal (NAD per radiology) - CONSULTS/PCP/HOSPITALIST Notification #1 *Consult/PCP/Hospitalist*: James Time Discussed: 19:41 Consult Disposition: Will see in ED, Admit - CHANGE OF SHIFT REPORT (ED Provider) Report Given and Care Transferred to:: NICHOL Pino Time of Transfer: 18:08 Items Pending: Labs Comment: admit, stable Departure - Departure Time of Disposition Decision: 19:41 DIAGNOSIS: Hyponatremia Disposition: ADMITTED INPATIENT 09 Certified Medical Emergency: Emergent Condition: Stable Referrals and Follow-Ups: None,PCP [Primary Care Provider] - - Critical Care Note This patient required my direct & personal management of CC.: No Attestation - Physician/ TERESA Attestation Patient care was provided by Advanced Practice Provider:: Yes Advanced Practice Provider:: Pretty Hinkle Advanced Practice Provider documentation review:: The Mid-level provider documentation, treatment plan and medical decision making was reviewed by the physician who agrees with all treatment and medical decision making by the MLP. - Physician/ TERESA Attestation #2 Shift Change Time: 18:00 Patient care was provided by Advanced Practice Provider:: Yes Advanced Practice Provider:: Ike Giraldo
[2016-11-20 16:57] LABS: BASO% 0.2 % (0.0-0.8); EOS# 0.05 X1000 (0.0-0.7); HEMATOCRIT 36.7 % (42.0-52.0); HEMOGLOBIN 14.4 g/dL (14.0-18.0); LYMPH# 1.16 X1000 (1.2-3.4); LYMPH% 23.7 % (20.5-51.1); MANUAL DIFF NEEDED? NO; MCH 30.1 PG (27-31); MCHC 39.2 g/dL (33-37); MCV 76.6 FL (81-99); MONO# 0.55 X1000 (0.11-0.59); MONO% 11.2 % (1.7-9.3); MPV 10.1 FL (7.4-10.4); NEUT% 63.9 % (42.2-75.2); PLT 189 X1000 (130-400); RBC 4.79 XMIL (4.7-6.1)
[2016-11-20 16:59] LABS: ALLEN TEST YES; BE 0.5 mmoll (-3.0-3.0); BLOOD TYPE ARTERIAL; DRAW SITE R RADIAL; METHB 1.9 % (0.0-1.5); O2(CT) 18.3 mL/dL (15.0-23.0); PCO2(98.6) 37 mmHg (35-45); PO2(98.6) 68 mmHg (60-100); SAMPLE BLOOD; SAO2 97.4 % (95.0-100.0); THB 14.4 g/dL (11.5-17.4); pH(98.6) 7.43 (7.35-7.45)
[2016-11-20 17:03] LABS: MODALITY ROOM AIR
[2016-11-20 17:10] LABS: INR 0.99; PROTIME 10.4 Seconds (9.2-11.7); PTT 29.6 Seconds (22.0-36.0)
--- NOTE | 2016-11-20 17:38 | Diag Imaging Result Document ---
PROCEDURE NAME: CHEST-2 VIEWS - 11/20/2016 PA AND LATERAL RADIOGRAPH OF THE CHEST: COMPARISON: 10/28/2016. FINDINGS: The patient is rotated toward the left. There is questionable nodularity in the left perihilar region behind the heart border. Consider CT followup. The lungs are grossly clear, otherwise. There is no discrete pleural fluid collection or evidence of pneumothorax. The cardiomediastinal silhouette and upper airway are grossly unremarkable. IMPRESSION: Questionable left perihilar nodularity. See above discussion. [facility]
[2016-11-20 17:53] LABS: AGAP 12; ALBUMIN 3.9 g/dL (3.5-5.0); ALKALINE PHOSPHATASE 151 U/L (32-122); BUN 8 mg/dL (8-22); CALCIUM 8.6 mg/dL (8.8-10.2); CHLORIDE 72 mmol/L (98-107); CK PROFILE 78 U/L (24-204); COSMO 220; GOT 19 U/L (10-34); GPT 12 U/L (10-44); POTASSIUM 3.9 mmol/L (3.5-5.1); TCO2 25 mmol/L (25-35); TOTAL PROTEIN 5.7 g/dL (6.3-8.3)
[2016-11-20] MEDS ORDERED: NS 1,000 ML IV ONE (17:53)
[2016-11-20 17:54] LABS: SODIUM 111 mmol/L (136-145)
[2016-11-20 19:16] LABS: URINE CULTURE NEEDED? NO; URINE MICRO REVIEW NEEDED? NO; URINE SOURCE CATH
[2016-11-20 19:25] LABS: BILIRUBIN URINE NEGATIVE (NEGATIVE); BLOOD URINE NEGATIVE (NEGATIVE); COLOR YELLOW; GLUCOSE URINE NEGATIVE (NEGATIVE); LEUKOCYTES URINE NEGATIVE (NEGATIVE); NITRITE URINE NEGATIVE (NEGATIVE); PH URINE 6.5; PROTEIN URINE 100 mg/dL (NEGATIVE); SP GRAVITY URINE 1.019; TURBIDITY URINE CLEAR (CLEAR); UROBILINOGEN URINE 4 mg/dL (NORMAL)
[2016-11-20 19:27] LABS: UR EPITHELIAL CELLS <10 /HPF (<10); URINE BACTERIA NEGATIVE /HPF; URINE RBC <10 /HPF (<10); URINE WBC <10 /HPF (<10)
[2016-11-20 19:43] LABS: UR AMPHETAMINES QUAL NONE DETECTED (NONE DETECT); UR BARBITUATES QUAL NONE DETECTED (NONE DETECT); UR BENZODIAZEPIN QUAL PRESUMPTIVE POSITIVE (NONE DETECT); UR CANNABINOIDS QUAL NONE DETECTED (NONE DETECT); UR COCAINE QUAL NONE DETECTED (NONE DETECT); UR METHADONE QUAL NONE DETECTED (NONE DETECT); UR OPIATES QUAL NONE DETECTED (NONE DETECT); UR OXYCODONE QUAL NONE DETECTED (NONE DETECT); UR PCP QUAL NONE DETECTED (NONE DETECT)
[2016-11-20 21:06] LABS: AGAP 10; BUN 8 mg/dL (8-22); CALCIUM 8.2 mg/dL (8.8-10.2); CHLORIDE 75 mmol/L (98-107); COSMO 221; POTASSIUM 3.4 mmol/L (3.5-5.1); SODIUM 110 mmol/L (136-145); TCO2 25 mmol/L (25-35)
[2016-11-20] MEDS ORDERED: KLOR-CON PO ONE (23:22)
[2016-11-20] MEDS ORDERED: SAMSCA PO ONE (23:22)
[2016-11-20] MEDS ORDERED: ZOFRAN IV PRN (23:22)
[2016-11-20] MEDS ORDERED: ATIVAN IV PRN (23:22)
--- NOTE | 2016-11-20 23:27 | Diag Imaging Result Document ---
PROCEDURE NAME: CT THORAX W/O CONTRAST - 11/20/2016 CT CHEST WITHOUT CONTRAST: COMPARISON: None available. FINDINGS: There are mild emphysematous changes bilaterally with an apical predominance. In the left lower lobe perihilar region, there is a lobulated mass measuring up to 4.0 x 2.9 cm axially. Its exact border is difficult to determine given the lack of IV contrast. There are several smaller tiny satellite nodules extending from the mass into the left lower lobe base. There is a smaller mass near the right lung apex with a spiculated border. It also exhibits focal central cavitation. It measures 1.8 x 1.0 cm axially. There is a 5 mm noncalcified nodule in the right middle lobe. In the lingula there is a punctate calcified granuloma. There are no pleural fluid collections and there is no pneumothorax. There appears to be extensive left hilar lymphadenopathy that is confluent with the perihilar lung mass. Subcarinal lymphadenopathy is also noted. There are a few calcified lymph nodes indicating prior granulomatous disease. There is aneurysmal dilation of the ascending aorta measuring up to 5.1 cm in diameter. There is a small hiatal hernia. IMPRESSION: 1. Mild emphysema. 2. Prominent perihilar left lower lobe mass with a few smaller satellite nodules extending into the left lung base. Neoplasm cannot be excluded. 3. Smaller spiculated nodule at the right lung apex. 4. Extensive subcarinal and left hilar lymphadenopathy. 5. Ascending thoracic aortic aneurysm. 6. Other incidental/nonacute findings detailed above.
[2016-11-20] MEDS: NORVASC PO SCH (23:39)
[2016-11-20] MEDS: NS 1,000 ML IV ONE (23:40)
[2016-11-20] MEDS: XANAX PO SCH (23:58)
[2016-11-20] MEDS: NORCO-7.5 PO PRN (23:58)
[2016-11-21 02:36] LABS: AGAP 15; BUN 7 mg/dL (8-22); CALCIUM 8.2 mg/dL (8.8-10.2); CHLORIDE 76 mmol/L (98-107); COSMO 225; POTASSIUM 3.8 mmol/L (3.5-5.1); SODIUM 112 mmol/L (136-145); TCO2 21 mmol/L (25-35)
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
[2016-11-21] MEDS: NS 1,000 ML IV ONE (04:26)
[2016-11-21 05:21] LABS: EOS# 0.04 X1000 (0.0-0.7); EOS% 0.8 % (0.0-10.0); HEMATOCRIT 34.6 % (42.0-52.0); HEMOGLOBIN 13.4 g/dL (14.0-18.0); LYMPH% 30.1 % (20.5-51.1); MANUAL DIFF NEEDED? NO; MCH 30.1 PG (27-31); MCHC 38.7 g/dL (33-37); MCV 77.8 FL (81-99); MONO# 0.42 X1000 (0.11-0.59); MONO% 8.4 % (1.7-9.3); MPV 10.2 FL (7.4-10.4); NEUT% 60.7 % (42.2-75.2); PLT 155 X1000 (130-400); RBC 4.45 XMIL (4.7-6.1)
[2016-11-21 05:40] LABS: AGAP 11; BUN 7 mg/dL (8-22); CALCIUM 8.7 mg/dL (8.8-10.2); CHLORIDE 81 mmol/L (98-107); COSMO 236; POTASSIUM 3.9 mmol/L (3.5-5.1); TCO2 26 mmol/L (25-35)
[2016-11-21 05:52] LABS: SODIUM 118 mmol/L (136-145)
[2016-11-21] MEDS ORDERED: NS 1,000 ML IV SCH (07:12)
[2016-11-21] MEDS: VITAMIN D PO SCH ×2 (07:49→09:17)
[2016-11-21] MEDS: XANAX PO SCH ×3 (07:49→20:31)
[2016-11-21] MEDS: NORVASC PO SCH ×3 (07:50→20:30)
[2016-11-21] MEDS: DUONEB (A & A) INH SCH ×5 (09:10→23:18)
[2016-11-21 09:14] LABS: IRON SATURATION 43 %; TIBC 311 ug/dL; TOTAL IRON 134 ug/dL (53-167); UNBOUND IRON 177 ug/dL (112-346)
[2016-11-21 09:32] LABS: AGAP 13; BUN 7 mg/dL (8-22); CHLORIDE 86 mmol/L (98-107); COSMO 247; POTASSIUM 4.6 mmol/L (3.5-5.1); SODIUM 124 mmol/L (136-145); TCO2 25 mmol/L (25-35)
--- NOTE | 2016-11-21 09:34 | Diag Imaging Result Document ---
PROCEDURE NAME: ABDOMEN/PELVIS W/O CONTRAST - 11/20/2016 CT ABDOMEN AND PELVIS WITHOUT CONTRAST: COMPARISON: None available. FINDINGS: Note that this study is limited without IV contrast, especially for staging related to potential neoplasm. The inferior tip of the lobulated mass in the left lower lobe seen on an earlier chest CT performed today is identified. The smaller adjacent ground-glass satellite nodules extending from the lesion into the left lung base are also identified. There is a rounded low dense focus involving the left hepatic lobe measuring approximately 4.1 x 3.6 cm axially. A metastatic lesion cannot be excluded. However, it is not possible to completely characterize this lesion without IV contrast. No other discrete hepatic lesions are appreciated. Both adrenal glands are mildly thickened and are low dense. Statistically, this most likely represents adrenal hyperplasia or bilateral adrenal adenomas. There is a small hiatal hernia. No renal or ureteral stones are appreciated. There is patchy aortic atherosclerotic calcification but no evidence of aneurysm. No focal inflammatory changes, free abdominal gas, or free fluid is appreciated. There are prostatic calcifications. The remainder of the solid viscera of the abdomen and pelvis and the remainder of the GI tract is essentially unremarkable. No significant abdominal or pelvic lymphadenopathy is appreciated. IMPRESSION: 1. Nonspecific low dense lesion involving the left hepatic lobe for which a metastatic mass cannot be excluded. However, evaluation is limited with no IV contrast. 2. Other incidental/nonacute findings detailed above.
[2016-11-21] MEDS: NS 1,000 ML IV SCH ×2 (10:30→13:44)
[2016-11-21] MEDS: LIPITOR PO SCH (10:58)
--- NOTE | 2016-11-21 11:58 | PROGRESS NOTE ---
DATE: 11/21/2016 Today Mr. Singh refers to be doing a little better. According to him, he has been feeling remarkably weak for the past couple months. He has fallen down on other occasions because of extremity weakness. He also refers to be losing some weight but his appetite is maintained. OBJECTIVE: Vital signs: Blood pressure is 161/100, pulse of 101, respiration is 17, temperature is 97.7 degrees. General: Mr. Singh is a 51-year-old male. He is in bed. Did not seem to be in any remarkable distress. HEENT: Mucosa is slightly dry. Anicteric. Acyanotic. Neck: Supple. Chest: Good air entry bilateral. Some diffuse end exploratory wheezing. No crepitations. Cardiovascular: Regular rate and rhythm. No murmurs, no rubs. No gallops. Abdomen: Soft. Mildly tender in the right upper quadrant. No masses felt. No hepatosplenomegaly. Bowel sounds are present. Extremities: No pedal edema. 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 The patient does have residual right-sided hemiparesis. Skin: The fingers show remarkable clubbing with hypertrophic osteoarthropathy. LABORATORY DATA: WBC is 4.99, hemoglobin is 13.4, platelet count is 155,000. Chemistry is reviewed. Sodium is 124, potassium is 4.6, chloride is 86, bicarb is 25. Iron panel is completely normal. B12 is 632 which is fine. DIAGNOSTIC STUDIES: A CT scan of the chest shows prominent parahilar left lower lobe mass with a few smaller satellite nodules extending to the left lung base. Neoplasm cannot be excluded. There is also a small spiculated nodule on the right upper lung. There is extensive subcarina and left hilar lymphadenopathy. A CT scan of the abdomen shows nonspecific low-density lesion involving the left hepatic lobe for which metastatic mass cannot be rule out. ASSESSMENT: 1. Generalized weakness. 2. Hyponatremic. This seems to be multifactorial. Patient is dehydrated and I also think that there might be some underlying SIADH. We will continue with the current hydration to get the patient euvolemic and then after that, address the tonicity. 3. Lung mass, the left larger than the right with lymphadenopathy. I think in the context of COPD with wasting syndrome I think this is most likely an underlying malignancy of the lung. Oncology has been consulted. 4. Hypertension. We will continue with current medications. 5. Previous CVA with mild right side hemiparesis. 6. Atherosclerotic burden. Patient does have does have aneurysm of the ascending aorta on the CT scan. Also does have decrease of pedal pulse on the right and even the femoral on the right which are all consistent with peripheral vascular disease. The patient is on aspirin. We will add statin. 7. Chronic pain syndrome noted. 8. 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 9. Iodine allergy. Patient does have some mass which I think IV contrast will help to elucidate it better. However according to him, he had contrast for CT studies in a hospital in [place] and a couple minutes later his eyes got shut down and he started having difficulty breathing and he went downhill and he was told by the physicians that he has allergy to kidney contrast so he should never take it. I discussed this with the radiologist today, Dr. Aden and he is with the impression that if it was that major of an allergy that we probably might want to do an MRI of the abdomen at least to get a better idea about the liver injury before we biopsy. I think eventually we are going to be needing tissue but he wants to be sure because it could also be vascular which he cannot call because the study was not done with contrast. If we are able to biopsy the liver injury and it is metastatic disease then it will confirm that it is stage IV disease probably from the lung and we do not have to biopsy the lung again. We will be waiting on both Pulmonary Medicine and Oncology evaluation of the patient and then go from there in terms of the workup and where we will be able to get the tissue biopsy. cc: Leodan Chao MD MTDD
[2016-11-21] MEDS ORDERED: SAMSCA PO ONE (12:35)
[2016-11-21 13:10] LABS: AGAP 10; BUN 9 mg/dL (8-22); CALCIUM 8.7 mg/dL (8.8-10.2); CHLORIDE 93 mmol/L (98-107); COSMO 256; POTASSIUM 3.8 mmol/L (3.5-5.1); SODIUM 127 mmol/L (136-145); TCO2 24 mmol/L (25-35)
[2016-11-21] MEDS: NORCO-7.5 PO PRN ×2 (13:52→19:11)
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
--- NOTE | 2016-11-21 14:44 | CONSULTATION ---
DATE OF CONSULTATION: 11/21/[address] Leodan Chao: Thank you very much for asking me to see this very unfortunate 51-year-old white male. I am pleased to assist in his care. DIAGNOSES: 1. Left lower lung mass with mediastinal adenopathy associated with hyponatremia and syndrome of inappropriate antidiuretic hormone. 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 2. Probable hepatic metastases. 3. Chronic obstructive pulmonary disease. 4. Old history of cerebrovascular accident. 5. Pathologic weight loss. 6. Protein calorie malnutrition. RECOMMENDATIONS: I will give him a single dose of tolvaptan. I will check his liver function tests and give him bronchodilators and prepare him for a fiberoptic bronchoscopy early this week. We will follow closely along with you. HISTORY: This very unfortunate 51-year-old white male presented to our office with a history of some right hemiparesis. He was found on his x-ray to a left lower lobe chest mass and a CAT scan demonstrates a mediastinal mass with adenopathy. Subsequent to this, he was admitted to the hospital. I am consulted as the benzene operator line person for evaluation. He denies hemoptysis. He is a heavy cigarette smoker of approximately 60 pack year history starting when he was in his early 20s. REVIEW OF SYSTEMS: Review of systems except for the features mentioned above are negative for weight loss, night sweats, weakness, or anorexia. No ENT symptoms of odynophagia, dysphagia, epistaxis, painful swallowing. No eye symptoms of blindness, blurring, diplopia. No other cardiac or pulmonary symptoms other than mentioned. No nausea, vomiting, constipation, diarrhea. No hematuria, polyuria, nocturia, dysuria. No joint or muscle pain. Stiffness or swelling. No skin rashes, itching, or bruises. No seizures, loss of consciousness, paralysis mentioned above. All other symptoms on the review of systems are negative. PAST MEDICAL HISTORY: Positive for a CVA with right hemiparesis, hypertension, chronic pain disorder, COPD, as well as carotid stents. SOCIAL HISTORY: He is disabled. He is not and has no children. He is disabled secondary to chronic pain. FAMILY HISTORY: Positive for ischemic heart disease as well as hypertension. PHYSICAL EXAMINATION: Vital Signs: On his physical examination, he has a blood pressure of 134/90 with a pulse of 85, respirations of 18, temperature 98.5 degrees. HEENT exam reveals no thyromegaly or adenopathy. Pupils are equal and reactive. Extraocular muscles are intact. Neck is supple. There is no palpable cervical adenopathy. Chest reveals bilateral equal breath sounds with some prolongation of expiratory phase and forced expiratory wheezes. Cardiac exam reveals a regular rhythm. Abdomen is soft. Skin is warm and dry. Neurologically, he is grossly nonfocal. Awake, moves all 4 extremities. Cranial nerves 2-12 intact. LABORATORY DATA: The sodium is 124, potassium 4.6, chloride 86, CO2 of 25. BUN 7, creatinine 0.9, glucose 96. The white count is 4900 with hemoglobin of 13.4, hematocrit 34.4, and platelets 155,000. IMAGING: CT of the chest shows a left lower lobe chest mass with mediastinal and hilar adenopathy. There is possibly a lesion in the liver. MRI scan possibly demonstrates a lesion in the right basal ganglia.
[2016-11-21 17:31] LABS: AGAP 12; BUN 14 mg/dL (8-22); CALCIUM 8.9 mg/dL (8.8-10.2); CHLORIDE 96 mmol/L (98-107); COSMO 267; POTASSIUM 3.8 mmol/L (3.5-5.1); SODIUM 132 mmol/L (136-145); TCO2 24 mmol/L (25-35)
--- NOTE | 2016-11-21 18:52 | CONSULTATION ---
DATE OF CONSULTATION: 11/21/2016 REASON FOR CONSULTATION: Hyponatremia. HISTORY OF PRESENT ILLNESS: Mr. Singh is a 51-year-old white male with a history of CVA with hemiparesis as well as hypertension, chronic pain syndrome, COPD, cerebrovascular disease etc. He came to the emergency room with complaint of weakness. This has been progressively worse over time ultimately resulting in his presentation to the emergency room. His initial evaluation found his serum sodium 111. He has had a previous episode of hyponatremia where he was admitted on the 12th of this month with a sodium of 114. Improved to 133 at the time of discharge. His initial urine osmolality today was 550 and he was treated with Samsca as well as normal saline and has had a steady improvement in his serum osmolality with sodium rising from 111-127. He still complains of weakness at this time. He does state that he is somewhat better. Abnormal weight loss has been present and he also has a chronic cough with sputum production. PAST MEDICAL HISTORY: As above. He also has hypertension. HOME MEDICATIONS: Xanax, aspirin, vitamin D, lisinopril, Lexapro. ALLERGIES: Fioricet and contrast. SOCIAL HISTORY: He lives with his sister who is his primary caregiver. Ongoing heavy tobacco use. No alcohol or other substances. FAMILY HISTORY: Noncontributory. PHYSICAL EXAMINATION: Vital Signs: Blood pressure 148/93, heart rate 113, respirations 20, afebrile. Generally: He is a chronically ill, frail man, lying in bed. No acute distress. Skin: Warm and dry. HEENT: Conjunctivae are pink. Pupils are equal. Oropharynx is clear. Neck: Supple. Trachea is midline. No jugular venous distention. Heart: Regular without gallops or murmurs. Lungs: Have equal breath sounds. No crackles or wheezes. Abdomen: Soft, nontender. Bowel sounds are present. No organomegaly or masses or bruits. Extremities: Have no edema, clubbing, or cyanosis. Neurologic Exam: With right-sided weakness. No other findings. LABORATORY DATA: Sodium 127. IMPRESSION: Hyponatremia. Progressive improvement with current therapy. His initial urine osmolality was elevated in the context of hyponatremia suggesting possible SIADH. He has been treated with Samsca as well as normal saline with progressive improvement in his serum sodium. We will continue current therapy. No further Samsca as required. Certainly, he is at risk for a pulmonary malignancy that may be contributing. Abnormal CT. cc: Angel Barahona MD
[2016-11-21] MEDS: DECLOMYCIN PO SCH (20:31)
[2016-11-21] MEDS: ASPIRIN EC PO SCH (20:31)
[2016-11-21 21:53] LABS: AGAP 13; BUN 15 mg/dL (8-22); CALCIUM 8.6 mg/dL (8.8-10.2); CHLORIDE 99 mmol/L (98-107); COSMO 268; POTASSIUM 3.9 mmol/L (3.5-5.1); SODIUM 133 mmol/L (136-145); TCO2 21 mmol/L (25-35)
[2016-11-22 01:36] LABS: AGAP 12; BUN 15 mg/dL (8-22); CALCIUM 8.9 mg/dL (8.8-10.2); CHLORIDE 100 mmol/L (98-107); COSMO 272; SODIUM 135 mmol/L (136-145); TCO2 23 mmol/L (25-35)
[2016-11-22] MEDS: DUONEB (A & A) INH SCH ×6 (03:34→23:07)
[2016-11-22 05:45] LABS: AGAP 12; BUN 12 mg/dL (8-22); CHLORIDE 99 mmol/L (98-107); COSMO 266; POTASSIUM 4.1 mmol/L (3.5-5.1); SODIUM 133 mmol/L (136-145); TCO2 22 mmol/L (25-35)
[2016-11-22 06:03] LABS: BASO% 0.1 % (0.0-0.8); EOS# 0.01 X1000 (0.0-0.7); EOS% 0.1 % (0.0-10.0); HEMATOCRIT 36.3 % (42.0-52.0); HEMOGLOBIN 13.3 g/dL (14.0-18.0); IMM GRAN# 0.02 X1000 (0.0-0.04); IMM GRAN% 0.2 % (0.0-0.5); LYMPH# 1.01 X1000 (1.2-3.4); LYMPH% 12.1 % (20.5-51.1); MANUAL DIFF NEEDED? YES; MCH 29.8 PG (27-31); MCHC 36.6 g/dL (33-37); MCV 81.4 FL (81-99); MONO# 0.55 X1000 (0.11-0.59); MONO% 6.6 % (1.7-9.3); MPV 10.1 FL (7.4-10.4); NEUT% 80.9 % (42.2-75.2); PLT 169 X1000 (130-400); RBC 4.46 XMIL (4.7-6.1)
[2016-11-22 07:53] LABS: BANDS 1 % (0-1); LYMPHS 15 % (21-51); MONO 4 % (1-9)
--- NOTE | 2016-11-22 09:21 | Diag Imaging Result Document ---
PROCEDURE NAME: CHEST-1 VIEW - 11/22/2016 SINGLE FRONTAL RADIOGRAPH OF THE CHEST: COMPARISON: 11/20/2016. FINDINGS: The known perihilar mass seen on previous CT in the left infrarenal region can be identified. However, it is very vague and largely obscured by the left heart border. No new consolidations are appreciated. Cardiac silhouette is stable. IMPRESSION: Stable chest.
[2016-11-22] MEDS: FOLIC ACID PO SCH (09:22)
[2016-11-22] MEDS: NORVASC PO SCH ×2 (09:22→20:11)
[2016-11-22] MEDS: VITAMIN D PO SCH (09:22)
[2016-11-22] MEDS: LIPITOR PO SCH (09:22)
[2016-11-22] MEDS: DECLOMYCIN PO SCH ×2 (09:23→20:12)
[2016-11-22] MEDS: XANAX PO SCH ×2 (09:31→20:12)
[2016-11-22 10:47] LABS: AGAP 15; BUN 11 mg/dL (8-22); CALCIUM 8.9 mg/dL (8.8-10.2); CHLORIDE 99 mmol/L (98-107); COSMO 270; POTASSIUM 3.5 mmol/L (3.5-5.1); SODIUM 134 mmol/L (136-145); TCO2 20 mmol/L (25-35)
[2016-11-22 13:37] LABS: INR 0.98; PROTIME 10.3 Seconds (9.2-11.7)
--- NOTE | 2016-11-22 16:02 | PROGRESS NOTE ---
DATE: 11/22/2016 SUBJECTIVE: Today, Mr. Singh refers to be doing relatively fine. He just said he was catching up on his sleep. OBJECTIVE: Vital signs: Blood pressure is 143/88, pulse of 119, respirations 24, temperature is 98 degrees. The patient was saturating 98% on 2 L of nasal cannula. General: Mr. Singh is a 51- year-old male. He was in bed. He looks undernourished. No distress. HEENT: Mucosa is slightly dry. Anicteric. Acyanotic. Neck: Supple. Chest: Air entry is bilaterally reduced. There is still diffuse bilateral expiratory wheezes. Cardiovascular: Regular rate and rhythm. Abdomen: Soft. Extremities: No pedal edema. BASE PLY HAND: Patient is alert and oriented. LABORATORY DATA: WBC is 8.35, hemoglobin is 13.3, platelet count of 169,000. Chemistry is reviewed. Sodium is 134, potassium is 3.5, chloride 99, bicarb is 22. Chest x-ray this morning shows perihilar mass on CT scan in the left infrarenal region can be identified. ASSESSMENT: 1. Generalized weakness, likely multifactorial. 2. Hyponatremia with elevated urine osmolarity consistent with syndrome of inappropriate antidiuretic hormone secretion. Patient was given a dose of Samsca. The sodium has improved. He has been started also on demeclocycline by the media account executive. 3. Lung mass with lymphadenopathy suspicious for malignancy(possible small cell cancer of lungs) 4. Suspected metastatic lesion in the liver. 5. Hypertension. 6. Previous cerebrovascular accident with mild right side hemiparesis. 7. Peripheral artery disease. Patient will continue with aspirin and statin. 8. 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 9. Chronic pain syndrome noted. 10. Iodine allergy. PLAN: In general, I think Mr. Singh is relatively stable. We are going to continue with the bronchodilator therapy for the bronchospasms. Patient will be getting a magnetic resonance imaging of the abdomen and pelvis and also magnetic resonance imaging of the brain for staging. Patient has severe iodine allergy, so would stay away from computed tomography contrast studies. If the magnetic resonance imaging of the abdomen is consistent with a malignancy of the liver, then Interventional Radiology will be able to biopsy that and that will give us some answers. cc: MD TADEO Calles
[2016-11-22] MEDS: ASPIRIN EC PO SCH (20:11)
[2016-11-22] MEDS: NORCO-7.5 PO PRN (20:12)
[2016-11-23] MEDS: DUONEB (A & A) INH SCH ×6 (03:06→22:36)
[2016-11-23] MEDS: NORCO-7.5 PO PRN ×4 (03:15→23:31)
[2016-11-23 05:35] LABS: MANUAL DIFF NEEDED? NO
[2016-11-23 06:18] LABS: BASO% 0.3 % (0.0-0.8); EOS# 0.14 X1000 (0.0-0.7); EOS% 1.9 % (0.0-10.0); HEMATOCRIT 34.7 % (42.0-52.0); HEMOGLOBIN 12.1 g/dL (14.0-18.0); LYMPH% 24.8 % (20.5-51.1); MCH 29.4 PG (27-31); MCHC 34.9 g/dL (33-37); MCV 84.4 FL (81-99); MONO# 0.51 X1000 (0.11-0.59); MPV 10.4 FL (7.4-10.4); PLT 162 X1000 (130-400); RBC 4.11 XMIL (4.7-6.1)
--- NOTE | 2016-11-23 06:29 | EKG Report ---
Test Performed on : 11/20/2016 3:03:20 PM Test Reason : WEAKNESS Blood Pressure : / mmHG Vent. Rate : 089 BPM Atrial Rate : 089 BPM P-R Int : 178 ms QRS Dur : 100 ms QT Int : 368 ms P-R-T Axes : 066 054 101 degrees QTc Int : 447 ms Normal sinus rhythm. Possible Left atrial enlargement Left ventricular hypertrophy with repolarization abnormality Abnormal ECG When compared with ECG of 28-OCT-2016 19:10, No significant change was found Unconfirmed Result
[2016-11-23 06:52] LABS: AGAP 12; BUN 16 mg/dL (8-22); CALCIUM 8.8 mg/dL (8.8-10.2); CHLORIDE 95 mmol/L (98-107); COSMO 264; POTASSIUM 3.9 mmol/L (3.5-5.1); SODIUM 131 mmol/L (136-145); TCO2 24 mmol/L (25-35)
[2016-11-23] MEDS: FOLIC ACID PO SCH (08:22)
[2016-11-23] MEDS: DECLOMYCIN PO SCH ×2 (08:22→20:10)
[2016-11-23] MEDS: NORVASC PO SCH ×2 (08:22→20:10)
[2016-11-23] MEDS: XANAX PO SCH ×2 (08:22→20:10)
[2016-11-23] MEDS: VITAMIN D PO SCH (08:22)
[2016-11-23] MEDS: LIPITOR PO SCH (08:22)
[2016-11-23] MEDS ORDERED: SAMSCA PO ONE (08:25)
--- NOTE | 2016-11-23 11:46 | PROGRESS NOTE ---
DATE: 11/23/2016 SUBJECTIVE: Patient immediately back from MRI. He is quite drowsy. OBJECTIVE: Vital Signs: Temperature 98.3 degrees, pulse 81, respiratory rate 18, blood pressure 155/81. Intake 860 mL. Output 525 mL. Physical Examination: General: This is a middle-aged gentleman resting in bed , chronically ill- appearing. He is drowsy. HEENT: Normocephalic and atraumatic. SUMANTH. Oral mucosa moist. Neck: Supple. Trachea midline. No JVD. Cardiovascular: Regular rate and rhythm. There is a systolic murmur noted. Pulmonary: He has wheezes bilaterally. Decreased breath sounds to the bases. Abdomen: Soft. Positive bowel sounds. : Not inspected. Extremities: No clubbing, cyanosis, or edema. Integumentary: Skin is pale, warm, and dry. Lab Data: WBC of 7.2, hemoglobin 12.1. Sodium 131, potassium 3.9, chloride 95 , CO2 24, BUN 16, creatinine 1.2. ASSESSMENT AND PLAN: Hyponatremia, likely syndrome of inappropriate antidiuretic hormone secretion. Patient has a high suspicion of malignancy with lung mass and lymphadenopathy. His sodium is currently acceptable. Continue water restriction. Nothing to add so we will sign off. Please call if I can help. rg Seen, data reviewed, discussed with Trudi Mackenzie on 11/23/16. I agree with the above assessment and plan of care. rg Dictated by NICHOL Lopes for Angel Barahona MD cc: Angel Barahona MD [facility]
--- NOTE | 2016-11-23 12:07 | Diag Imaging Result Document ---
PROCEDURE NAME: MRI PELVIS W/WO CONTRAST - 11/23/2016 MRI OF THE PELVIS WITH AND WITHOUT GADOLINIUM: FINDINGS: There are apparent postsurgical and traumatic changes to the proximal left femur. There is also evidence of chronic ischemic necrosis of the femoral heads which was also apparent on the CT of 11/20/2016. There is some apparent enhancement on the T1-weighted post gadolinium images in the area of the intertrochanteric left femur. This may be due to scarring; however, the possibility of metastatic disease cannot be entirely excluded. There is an area of enhancement in the posterior medial left iliac bone which corresponds to a slightly asymmetrical sclerotic area on the CT scan of 11/20/2016. This area is slightly hyperintense on the pre enhanced T1-weighted images and also on the spin echo T2-weighted images. Inversion recovery images are also hyperintense in this area. There is increased signal intensity on the STIR images also in the intertrochanteric region of the left femur. IMPRESSION: The possibility of metastatic disease to the intertrochanteric left femur, the posterior medial left iliac bone and ischemic necrosis of both femoral heads is suggested.
--- NOTE | 2016-11-23 15:16 | Diag Imaging Result Document ---
PROCEDURE NAME: MRI BRAIN W W/O CONTRAST - 11/23/2016 MRI OF THE BRAIN WITH AND WITHOUT GADOLINIUM: FINDINGS: There is considerable patient motion. There is increased T2- weighted signal intensity in the cortex and subcortical white matter of the right parietal lobe, the left parietal lobe and the left occipital lobe. These findings were all present at the time of the previous study of 10/29/2016. There are no acute diffusion-weighted signal abnormalities. There is some encephalomalacia in the inferior left cerebellar hemisphere which is also stable in appearance since the previous study. No evidence of bleed or abnormal extra-axial fluid collection is present. There is particularly severe motion artifact on the post gadolinium enhanced T1-weighted images but there is no gross evidence of abnormal gadolinium enhancement. IMPRESSION: Chronic ischemic changes which are essentially stable since 2016. [facility]
--- NOTE | 2016-11-23 15:20 | Diag Imaging Result Document ---
PROCEDURE NAME: BONE SCAN, TOTAL BODY - 11/23/2016 BONE SCAN: FINDINGS: The patient was injected with 25.9 mCi of technetium-99m MDP and static scanning was performed of the entire skeleton. There is increased activity present at T9 and T10 which appears to be related to compression fractures as seen on the recent CT scan of 11/20/2016. These are probably related to osteoporotic compression fractures. They were not present on the lateral chest radiograph of 01/24/2012. There is some increased activity around both knees, and into the intertrochanteric region of the left femur. This is also discussed on the recent MRI of the pelvis. There is a faint area of increased uptake present in the upper medial iliac bone on the left which presumably corresponds with the abnormality which is seen on MRI. This is not terribly conspicuous, however. IMPRESSION: 1. Compression fractures in the lower mid thoracic spine. 2. Nonspecific lesions in the left iliac bone and proximal femur.
--- NOTE | 2016-11-23 15:49 | Diag Imaging Result Document ---
PROCEDURE NAME: MRI ABDOMEN W/WO CONTRAST - 11/23/2016 MRI OF THE ABDOMEN WITH AND WITHOUT CONTRAST: This is a re-dictation at the original dictation has been lost. FINDINGS: There is a lesion in the left hepatic lobe which measures 4.3 x 3.8 x 3.4 cm and demonstrates slightly increased T2-weighted signal intensity and decreased T1 weighted signal intensity. The lesion appears to enhance slightly with gadolinium and does not demonstrate signal loss on the out of phase T1 weighted images. It is fairly homogeneous in appearance. This was also demonstrated on CT on 11/20/2016, which without contrast appeared hypodense. No previous contrast CT examinations or previous MRI studies are available for comparison. There are a number of tiny renal cysts bilaterally. No additional masses are identified. There is a lesion in the L3 vertebral body on the left demonstrating heterogeneous enhancement with gadolinium which does not change significantly over the delayed enhancement phases. It is slightly decreased in T1 weighted signal intensity and demonstrates some internal hyperintensity on the T2 weighted images. This may represent a hemangioma, but is somewhat atypical in its appearance. There is a similar- appearing lesion present on the right side of L5 and a smaller lesion on the left side at L4. IMPRESSION: Hepatic metastatic lesion with apparent metastases in the lumbar spine. Further evaluation of the spine with dedicated lumbar MRI may be desirable.
--- NOTE | 2016-11-23 20:04 | PROGRESS NOTE ---
DATE: 11/23/2016 SUBJECTIVE: Today Mr. Sanford referred to be doing fine. Weakness is improving and he denies any shortness of breath. OBJECTIVE: Vital signs: Blood pressure is 158/87, pulse of 97, respirations 16, temperature 97.6 degrees, patient is saturating 99% on room air. General: Mr. Singh is a 51-year-old male. He was in bed. No seemingly distress. HEENT: Mucosa is pink and moist. Anicteric. Acyanotic. Neck: Supple. Chest: Air entry is slightly reduced with a few bilateral expiratory wheezing. Cardiovascular: Regular rate and rhythm. Abdomen: Soft, nontender. Extremities: No pedal edema. MANAGER PULMONARY: Patient is alert and oriented x4. No focal neurologic deficit. LABORATORY DATA: WBC 7.27 hemoglobin is 12.1, platelet count of 162,000. Chemistry. Sodium is 131, potassium is 3.9, chloride is 95, bicarb is 24. MRIs of the pelvic show possibility of metastatic disease to the intertrochanteric left femur and ischemic necrosis of the both femoral heads is suggested. The brain MRI was unremarkable except for chronic ischemic changes. The bone scan shows compression fracture in lower mi thoracic spine. Nonspecific lesions in the left iliac bone and proximal femur. An abdominal MRI, hepatic metastatic lesions with apparent metastases in the lumbar spine. ASSESSMENT: 1. Generalized weakness likely due to underlying malignancy and hyponatremia. 2. Hyponatremia due to syndrome of inappropriate antidiuretic hormone secretion, this has stabilized with Samsca. Will continue with fluid restriction. Patient has been started also on demeclocycline by the order entry clerk. 3. Lung mass with lymphadenopathy suspicious for lung malignancy (possible small cell cancer). Liver and bone lesions likely metastatic. 4. Hypertension stable. 5. History of previous cerebrovascular accident with mild right-sided hemiparesis. 6. Cognitive decline likely due to vascular dementia. 7. Peripheral artery disease. Patient is on aspirin and statin. 8. Generalized wasting syndrome due to underlying malignancy and also failure to thrive. 9. Chronic pain syndrome noted. 10. Iodine allergy. In general Mr. Singh is a 51-year-old male who has been in the hospital for 3 days apparently presented because of generalized weakness and severe hyponatremia. The sodium has improved. In the workup it was found that patient a left perihilar lung mass with possible metastasis to the liver. Because patient has a severe iodine allergy we could not use iodine contrast medium for the staging workup so we had to wait till today to be able to get the MRI with gadolinium which is suspicious for metastatic liver disease and possible bone metastases as well. We will order a CT guided liver biopsy to give us some answers. This will be done hopefully tomorrow and then we can hopefully discharge the patient home to follow up with the oncologist so they will start planning for therapy on outpatient basis. The patient is relatively stable so we will transfer him from the [facility] to regular floor. cc: Leodan Chao MD
[2016-11-23] MEDS: ASPIRIN EC PO SCH (20:10)
[2016-11-24] MEDS: DUONEB (A & A) INH SCH ×6 (02:58→23:24)
[2016-11-24 05:13] LABS: MANUAL DIFF NEEDED? NO
[2016-11-24 05:18] LABS: BASO% 0.3 % (0.0-0.8); EOS# 0.34 X1000 (0.0-0.7); EOS% 4.7 % (0.0-10.0); HEMATOCRIT 35.7 % (42.0-52.0); HEMOGLOBIN 12.3 g/dL (14.0-18.0); LYMPH# 1.99 X1000 (1.2-3.4); LYMPH% 27.3 % (20.5-51.1); MCH 29.4 PG (27-31); MCHC 34.5 g/dL (33-37); MCV 85.4 FL (81-99); MONO# 0.44 X1000 (0.11-0.59); MPV 9.8 FL (7.4-10.4); NEUT% 61.7 % (42.2-75.2); PLT 149 X1000 (130-400); RBC 4.18 XMIL (4.7-6.1)
[2016-11-24 05:46] LABS: AGAP 11; ALBUMIN 3.4 g/dL (3.5-5.0); ALKALINE PHOSPHATASE 110 U/L (32-122); BUN 12 mg/dL (8-22); CHLORIDE 94 mmol/L (98-107); COSMO 265; GOT 17 U/L (10-34); GPT 10 U/L (10-44); POTASSIUM 4.5 mmol/L (3.5-5.1); SODIUM 133 mmol/L (136-145); TCO2 28 mmol/L (25-35); TOTAL BILIRUBIN 0.64 mg/dL (0.20-1.00); TOTAL PROTEIN 5.6 g/dL (6.3-8.3)
[2016-11-24] MEDS ORDERED: XYLOCAINE 1% ONE ×2 (06:57)
[2016-11-24] MEDS ORDERED: XYLOCAINE 2% ONE ×2 (06:57)
[2016-11-24] MEDS ORDERED: SODIUM CHLORIDE 0.9% 20 ML ONE (06:58)
[2016-11-24] MEDS ORDERED: XYLOCAINE 2% VISCOUS ONE (06:58)
[2016-11-24] MEDS ORDERED: EPINEPHRINE ONE (06:59)
[2016-11-24] MEDS ORDERED: BENADRYL ONE (07:42)
[2016-11-24] MEDS ORDERED: SOLU-CORTEF ONE (07:42)
[2016-11-24] MEDS ORDERED: DIPRIVAN 1% ONE (09:35)
--- NOTE | 2016-11-24 09:43 | Diag Imaging Result Document ---
PROCEDURE NAME: ABDOMEN W/CONTRAST - 11/24/2016 CT ABDOMEN WITH CONTRAST: FINDINGS: Normal spleen, pancreas, adrenal glands, and kidneys. No aortic aneurysm. Moderate atherosclerosis. No stones within the gallbladder. There is a single 3.7 cm hypodense lesion within the left lobe of the liver. This is fairly well demarcated. No other lesions throughout the liver. There are several prominent lymph nodes in the gastrohepatic area. No ascites. No bowel obstruction. IMPRESSION: 1. Solitary nonspecific hypodense lesion within the liver. 2. Mildly enlarged lymph nodes in the upper abdomen between the stomach and liver above the pancreatic head. 3. A PET CT is recommended depending on the results of the bronchoscopy. [facility]
[2016-11-24] MEDS ORDERED: ANESTHESIA PB SET 88 IN 5742 ONE (09:50)
[2016-11-24] MEDS ORDERED: LR 1,000 ML ONE (09:50)
[2016-11-24] MEDS ORDERED: XYLOCAINE-MPF 2% ONE (09:50)
[2016-11-24] MEDS: DECLOMYCIN PO SCH ×2 (10:38→20:10)
[2016-11-24] MEDS: LIPITOR PO SCH (10:38)
[2016-11-24] MEDS: NORVASC PO SCH ×2 (10:38→20:09)
[2016-11-24] MEDS: VITAMIN D PO SCH (10:38)
[2016-11-24] MEDS: FOLIC ACID PO SCH (10:38)
[2016-11-24] MEDS: XANAX PO SCH ×2 (10:39→20:10)
--- NOTE | 2016-11-24 11:38 | OPERATIVE NOTE ---
PROCEDURE DATE: 11/24/2016 PROCEDURE PERFORMED: Bronchoscopy with endobronchial biopsies. OIL FIELD TECHNICIAN: Clifton Mckeon MD CLINICAL INDICATIONS: Left lower lobe mass, spiculated right upper lobe nodule, hepatic mass. DESCRIPTION OF PROCEDURE: After informed consent was obtained, a time-out was performed. All agreed to the procedure. Topical anesthesia was achieved with viscous lidocaine to the right nostril with 2% lidocaine instilled above the vocal cords and 1% lidocaine instilled below the vocal cords. After topical anesthesia and sedation were achieved, bronchoscope was advanced through the right nostril to the level of the vocal cords. 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 Video image was obtained. The bronchoscope was advanced through the vocal cords into the trachea. No endotracheal lesions were identified. There was thick purulent secretions aspirated from the left mainstem bronchus. Airways to the right mainstem, right upper lobe, right middle lobe, and right lower lobe were all patent and without lesions. The bronchoscope was directed to the left side. Tumor could be seen involving the entire airflow divider between the left upper lobe and the left lower lobe. Video image was obtained. The tumor continued to extend into the left lower lobe. Washing was performed from the left lower lobe. Multiple biopsies were taken from the airflow divider between the left upper lobe and left lower lobe and labeled as left lower lobe. There was minor bleeding associated with the biopsies. No intervention was required. The patient tolerated the procedure without difficulty. IMPRESSION: 1. 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 2. Extensive tumor involving the airflow divider between the left upper lobe and left lower lobe with extension of the tumor into the left lower lobe as outlined above. 3. Status post washing of the trachea, status post washing of the left lower lobe, and status post multiple endobronchial biopsies of the airflow divider as outlined above. cc: Clifton Mckeon MD
[2016-11-24] MEDS: NORCO-7.5 PO PRN ×2 (16:05→21:24)
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
[2016-11-24] MEDS: ASPIRIN EC PO SCH (20:10)
[2016-11-25] MEDS: NORCO-7.5 PO PRN ×6 (00:40→22:01)
[2016-11-25] MEDS: DUONEB (A & A) INH SCH ×6 (03:32→22:50)
[2016-11-25] MEDS: XANAX PO SCH ×2 (08:58→21:52)
[2016-11-25] MEDS: NORVASC PO SCH ×2 (08:58→21:51)
[2016-11-25] MEDS: VITAMIN D PO SCH (08:58)
[2016-11-25] MEDS: DECLOMYCIN PO SCH ×2 (08:58→21:53)
[2016-11-25] MEDS: LIPITOR PO SCH (08:58)
[2016-11-25] MEDS: FOLIC ACID PO SCH (08:59)
--- NOTE | 2016-11-25 18:04 | PROGRESS NOTE ---
DATE: 11/25/2016 SUBJECTIVE: Mr. Singh is feeling a little better. He is eating. He had some questions about the liver biopsy. Apparently we are waiting on pathology from the bronchoscopy and the biopsy, so I told him he would probably be until Wednesday. We will wait on results of pathology. OBJECTIVE: Vital signs: Temperature is 97.6 degrees, pulse 100, respirations 16, blood pressure 157/84. HEENT: Pupils are equal, round, oral and nasal mucosa unremarkable. CVP less than 6 cm. Lungs: Clear in all lung de anda. Cardiovascular: Regular rhythm and rate without murmur or S3. Abdomen: Soft. Skin: Warm and dry. : Good urine output. LABORATORY: Sodium is 133, potassium 4.5, chloride 94, BUN 12, creatinine 1, albumin 3.4. White count 7290, hematocrit 35, platelet count 149,000. ASSESSMENT AND PLAN: 1. Generalized weakness due to underlying malignancy and hyponatremia. 2. Hyponatremia. Syndrome of inappropriate antidiuretic hormone secretion. Samsca has been helpful. Sodium is back up to normal values. 3. Lung mass. Lymphadenopathy. Metastatic lesions. Suspect the liver and bone. Wait and see if we want to liver biopsy. Wait on the bronchoscopy. 4. Hypertension. 5. History of previous cerebrovascular accident. Right-sided partial hemiparesis. 6. Cognitive decline secondary to vascular dementia. 7. Peripheral artery disease. 8. General wasting syndrome. Underlying malignancy. 9. Chronic pain syndrome. 10. Iodine allergy. REVIEW OF ORDERS: I do not see anything to change at this point. The patient is on demeclocycline 150 mg b.i.d., folic acid 1 mg p.o. daily, hydrocodone, lorazepam 1 mg IV q.6 hours, aspirin 81 mg a day, Lipitor 40 mg a day, Norvasc 5 mg b.i.d. Xanax 1 mg b.i.d. cc: Sam Timmons MD
[2016-11-25] MEDS: ASPIRIN EC PO SCH (21:53)
[2016-11-26] MEDS: NORCO-7.5 PO PRN ×3 (02:06→13:29)
[2016-11-26] MEDS: DUONEB (A & A) INH SCH ×6 (03:59→23:03)
[2016-11-26] MEDS: LIPITOR PO SCH (09:08)
[2016-11-26] MEDS: NORVASC PO SCH ×2 (09:08→20:35)
[2016-11-26] MEDS: VITAMIN D PO SCH (09:09)
[2016-11-26] MEDS: FOLIC ACID PO SCH (09:09)
[2016-11-26] MEDS: DECLOMYCIN PO SCH ×2 (09:09→20:35)
[2016-11-26] MEDS: XANAX PO SCH ×2 (12:16→20:35)
--- NOTE | 2016-11-26 12:22 | PROGRESS NOTE ---
DATE: 11/26/2016 SUBJECTIVE: He appears comfortable. He is eating pretty well. Breathing comfortably. Remains afebrile. OBJECTIVE: Vital signs: Temperature 97.7 degrees, pulse 86, respirations 18, blood pressure 171/87. HEENT: CVP less than 6 cm. Lungs: Clear in all lung de anda. Cardiovascular: Regular rhythm and rate without murmur or S3. Weight: 138 pounds. : Urine output was 1300 mL. LAB: No new lab today. Reviewed the labs from the ninth; it looks good. ASSESSMENT AND PLAN: 1. Generalized weakness, underlying malignancy, hyponatremia. 2. Hyponatremia syndrome of inappropriate antidiuretic hormone, which is improved. He did benefit from Samsca. 3. Lung mass lymphadenopathy. Metastatic lesions suspected. He has had bronchoscopy. Await pathology. Possibility they will do a liver biopsy. 4. Hypertension. 5. History of cerebrovascular accident. Right-sided partial hemiparesis. 6. Peripheral artery disease. 7. General wasting syndrome. Underlying malignancy. 8. Chronic pain syndrome. cc: Sam Timmons MD
[2016-11-26] MEDS: ASPIRIN EC PO SCH (20:35)
[2016-11-27] MEDS: DUONEB (A & A) INH SCH ×6 (03:14→23:27)
[2016-11-27] MEDS: NORCO-7.5 PO PRN ×4 (03:49→20:38)
[2016-11-27 07:23] LABS: MANUAL DIFF NEEDED? NO
[2016-11-27 07:28] LABS: EOS# 0.21 X1000 (0.0-0.7); EOS% 3.4 % (0.0-10.0); HEMATOCRIT 34.1 % (42.0-52.0); HEMOGLOBIN 11.9 g/dL (14.0-18.0); LYMPH# 1.06 X1000 (1.2-3.4); LYMPH% 17.1 % (20.5-51.1); MCH 29.1 PG (27-31); MCHC 34.9 g/dL (33-37); MCV 83.4 FL (81-99); MONO# 0.46 X1000 (0.11-0.59); MONO% 7.4 % (1.7-9.3); MPV 9.9 FL (7.4-10.4); NEUT% 72.1 % (42.2-75.2); PLT 140 X1000 (130-400); RBC 4.09 XMIL (4.7-6.1)
[2016-11-27 08:01] LABS: AGAP 9; BUN 25 mg/dL (8-22); CALCIUM 8.8 mg/dL (8.8-10.2); CHLORIDE 88 mmol/L (98-107); COSMO 254; MAGNESIUM 1.6 mg/dL (1.5-2.7); POTASSIUM 4.7 mmol/L (3.5-5.1); SODIUM 124 mmol/L (136-145); TCO2 27 mmol/L (25-35)
[2016-11-27] MEDS: LIPITOR PO SCH (10:05)
[2016-11-27] MEDS: NORVASC PO SCH ×2 (10:05→20:11)
[2016-11-27] MEDS: FOLIC ACID PO SCH (10:06)
[2016-11-27] MEDS: VITAMIN D PO SCH (10:06)
[2016-11-27] MEDS: XANAX PO SCH ×2 (10:20→20:11)
[2016-11-27] MEDS: DECLOMYCIN PO SCH ×2 (10:22→20:12)
[2016-11-27] MEDS ORDERED: SAMSCA PO ONE (15:38)
[2016-11-27] MEDS ORDERED: EMEND 150 MG in NS 145 ML IV ONE (16:00)
--- NOTE | 2016-11-27 16:13 | PROGRESS NOTE ---
DATE: 11/27/2016 SUBJECTIVE: The patient is sitting up in a chair. He has no complaints at this time. He is scheduled to start chemotherapy today. OBJECTIVE: Vital Signs: Temperature 97.6 degrees, blood pressure 172/86, heart rate 95, respiration 18, O2 saturations 98% on 2 L nasal cannula. General: This is an elderly male, sitting in bed, in no acute distress. Head: Normocephalic atraumatic. Heart: S1, S2. Normal. Regular rate and rhythm. Lungs: Equal air entry bilaterally. No crackles, no rales. Abdomen: Positive bowel sounds. Soft, nontender, nondistended. Extremities: No edema. No cyanosis. Neurologic: The patient is alert and oriented x3. LABS: White blood cell count 6.1, hemoglobin 11, hematocrit 34, platelets 146,000. Sodium 124, potassium 4.7, chloride 88, CO2 27, BUN 25, creatinine 1, glucose 90, magnesium 1.6. ASSESSMENT AND PLAN: 1. Metastatic small cell lung carcinoma. The patient is scheduled to start chemotherapy today. Management as per the oncologist. 2. Hyponatremia secondary to SIADH. We will give the patient a dose of Samsca. We will monitor the sodium level closely. 3. Tobacco dependence. Aware. The patient has been counseled about smoking cessation. 4. Hypertension. We will adjust the patient's antihypertensives. 5. Deep vein thrombosis prophylaxis. We will start the patient on Lovenox. cc: Faviola Shipley MD
[2016-11-27] MEDS ORDERED: ZOFRAN 16 MG in NS 25 ML IV ONE (16:30)
[2016-11-27] MEDS ORDERED: DECADRON IV ONE (16:45)
[2016-11-27] MEDS ORDERED: NS IV ONE (17:00)
[2016-11-27] MEDS ORDERED: PARAPLATIN IV ONE (17:00)
[2016-11-27] MEDS: COREG PO SCH (20:11)
[2016-11-27] MEDS: ASPIRIN EC PO SCH (20:11)
[2016-11-27] MEDS: LOVENOX SUBQ SCH (20:11)
[2016-11-27] MEDS: NS IV SCH (20:25)
[2016-11-27] MEDS: VEPESID IV SCH (20:25)
[2016-11-28] MEDS: NORCO-7.5 PO PRN ×2 (01:00→19:49)
[2016-11-28] MEDS: DUONEB (A & A) INH SCH ×5 (08:05→23:25)
[2016-11-28 08:41] LABS: HEMATOCRIT 36.3 % (42.0-52.0); HEMOGLOBIN 12.8 g/dL (14.0-18.0); MCH 29.8 PG (27-31); MCHC 35.3 g/dL (33-37); MCV 84.6 FL (81-99); MPV 10.4 FL (7.4-10.4); RBC 4.29 XMIL (4.7-6.1)
[2016-11-28 08:44] LABS: AGAP 10; ALBUMIN 3.9 g/dL (3.5-5.0); BUN 25 mg/dL (8-22); CALCIUM 9.1 mg/dL (8.8-10.2); CHLORIDE 93 mmol/L (98-107); COSMO 261; POTASSIUM 5.6 mmol/L (3.5-5.1); SODIUM 127 mmol/L (136-145); TCO2 24 mmol/L (25-35)
[2016-11-28] MEDS ORDERED: ALBUTEROL 0.5% INH CONC FOR HYPERKALEMIA INH ONE (08:45)
[2016-11-28] MEDS ORDERED: KAYEXALATE PO ONE (08:45)
[2016-11-28] MEDS ORDERED: SODIUM BICARBONATE 8.4% IV ONE (08:45)
[2016-11-28] MEDS ORDERED: SAMSCA PO ONE (08:46)
[2016-11-28] MEDS: COREG PO SCH ×2 (10:13→20:00)
[2016-11-28] MEDS: VITAMIN D PO SCH (10:13)
[2016-11-28] MEDS: LIPITOR PO SCH (10:14)
[2016-11-28] MEDS: FOLIC ACID PO SCH (10:14)
[2016-11-28] MEDS: XANAX PO SCH ×2 (10:14→20:00)
[2016-11-28] MEDS: DECLOMYCIN PO SCH ×2 (10:15→20:01)
[2016-11-28] MEDS: NORVASC PO SCH ×2 (10:15→20:00)
[2016-11-28] MEDS: PRILOSEC PO SCH (10:16)
--- NOTE | 2016-11-28 16:13 | PROGRESS NOTE ---
DATE: 11/28/2016 SUBJECTIVE: The patient is sitting up in a chair. He states there are generalized aches and pains. Otherwise he has no other complaints. OBJECTIVE: Vital Signs: Temperature 98.6 degrees, blood pressure 151/84, heart rate 79, respiration 20, O2 saturations 97% on 2 L nasal cannula. General: This is an elderly male, sitting in a chair, in no acute distress. Head: Normocephalic, atraumatic. Heart: S1, S2. Normal. Regular rate and rhythm. Lungs: Clear to auscultation bilaterally. Abdomen: Positive bowel sounds. Soft, nontender, nondistended. Extremities: No edema. No cyanosis. Neuro: The patient is alert and oriented x3. LABS: White blood cell count 3.9, hemoglobin 12, hematocrit 36, platelets 158,000. Sodium 127, potassium 5.6, chloride 93, CO2 24, BUN 25, creatinine 0.9, glucose 119. ASSESSMENT AND PLAN: 1. Metastatic small cell lung carcinoma. Continue with chemotherapy as directed by the oncologist. 2. Hyponatremia secondary to SIADH. Slightly improved today after receiving Samsca yesterday. We will give another dose of Samsca today. 3. Tobacco dependence. Aware. 4. Hypertension. Continue on Coreg and Norvasc. 5. Deep vein thrombosis prophylaxis. Continue on Lovenox. cc: Faviola Shipley MD
[2016-11-28] MEDS ORDERED: ZOFRAN 16 MG in NS 25 ML IV ONE (17:30)
[2016-11-28] MEDS ORDERED: DECADRON IV ONE (17:45)
[2016-11-28] MEDS: LOVENOX SUBQ SCH (18:38)
[2016-11-28] MEDS: NS IV SCH (18:50)
[2016-11-28] MEDS: VEPESID IV SCH (18:50)
[2016-11-28] MEDS: ASPIRIN EC PO SCH (20:00)
[2016-11-29] MEDS: NORCO-7.5 PO PRN ×4 (00:43→21:38)
[2016-11-29] MEDS: DUONEB (A & A) INH SCH ×5 (03:50→22:46)
[2016-11-29] MEDS: PRILOSEC PO SCH (06:10)
[2016-11-29 06:23] LABS: HEMATOCRIT 33.9 % (42.0-52.0); HEMOGLOBIN 11.5 g/dL (14.0-18.0); MCH 29.4 PG (27-31); MCHC 33.9 g/dL (33-37); MCV 86.7 FL (81-99); MPV 9.9 FL (7.4-10.4); RBC 3.91 XMIL (4.7-6.1)
[2016-11-29 06:33] LABS: AGAP 11; ALBUMIN 3.3 g/dL (3.5-5.0); BUN 28 mg/dL (8-22); CALCIUM 9.1 mg/dL (8.8-10.2); CHLORIDE 96 mmol/L (98-107); COSMO 276; POTASSIUM 4.1 mmol/L (3.5-5.1); SODIUM 135 mmol/L (136-145); TCO2 28 mmol/L (25-35); URIC ACID 3.6 mg/dL (3.4-7.0)
[2016-11-29] MEDS: LIPITOR PO SCH (08:58)
[2016-11-29] MEDS: FOLIC ACID PO SCH (08:58)
[2016-11-29] MEDS: XANAX PO SCH ×2 (08:58→21:33)
[2016-11-29] MEDS: COREG PO SCH ×2 (08:58→21:34)
[2016-11-29] MEDS: NORVASC PO SCH ×2 (08:58→21:34)
[2016-11-29] MEDS: VITAMIN D PO SCH (08:58)
[2016-11-29] MEDS: DECLOMYCIN PO SCH ×2 (08:58→21:34)
--- NOTE | 2016-11-29 17:23 | PROGRESS NOTE ---
DATE: 11/29/2016 SUBJECTIVE: The patient is resting comfortably in bed. He has no complaints at this time. OBJECTIVE: Vital Signs: Temperature 97 degrees, blood pressure 130/85, heart rate 75, respirations 16, O2 saturations 97% on 2 L nasal cannula. General: This is an elderly male lying comfortably in bed, in no acute distress. Head: Normocephalic, atraumatic. Heart: S1, S2. Normal. Regular rate and rhythm. Lungs: Clear to auscultation bilaterally. Abdomen: Positive bowel sounds. Soft, nontender, nondistended. Extremities: No edema. No cyanosis. LABORATORY: Reviewed. ASSESSMENT AND PLAN: 1. Small cell lung carcinoma status post chemotherapy. Management as per the oncologist. 2. Chronic pain. Continue on p.r.n. pain medication. 3. Constipation. We will start the patient on scheduled laxative therapy. 4. Hypertension. Controlled. 5. Hyponatremia. Improved. 6. Deep vein thrombosis prophylaxis. Continue on Lovenox. cc: Faviola Shipley MD
[2016-11-29] MEDS ORDERED: ZOFRAN 16 MG in NS 25 ML IV ONE (17:30)
[2016-11-29] MEDS ORDERED: DECADRON IV ONE (17:45)
[2016-11-29] MEDS: LOVENOX SUBQ SCH (18:51)
[2016-11-29] MEDS: NS IV SCH (20:10)
[2016-11-29] MEDS: VEPESID IV SCH (20:10)
[2016-11-29] MEDS: MIRALAX PO SCH (21:33)
[2016-11-29] MEDS: COLACE PO SCH (21:33)
[2016-11-29] MEDS: ASPIRIN EC PO SCH (21:34)
[2016-11-30] MEDS: DUONEB (A & A) INH SCH ×7 (03:43→23:11)
[2016-11-30] MEDS: PRILOSEC PO SCH (06:40)
[2016-11-30] MEDS: NORCO-7.5 PO PRN ×4 (06:40→20:55)
[2016-11-30 06:45] LABS: HEMATOCRIT 34.3 % (42.0-52.0); HEMOGLOBIN 11.7 g/dL (14.0-18.0); MCH 29.9 PG (27-31); MCHC 34.1 g/dL (33-37); MCV 87.7 FL (81-99); RBC 3.91 XMIL (4.7-6.1)
[2016-11-30 07:10] LABS: AGAP 10; ALBUMIN 3.5 g/dL (3.5-5.0); BUN 27 mg/dL (8-22); CALCIUM 8.7 mg/dL (8.8-10.2); CHLORIDE 98 mmol/L (98-107); COSMO 279; POTASSIUM 4.4 mmol/L (3.5-5.1); SODIUM 137 mmol/L (136-145); TCO2 29 mmol/L (25-35); URIC ACID 2.7 mg/dL (3.4-7.0)
[2016-11-30] MEDS: COREG PO SCH ×2 (09:45→20:54)
[2016-11-30] MEDS: MIRALAX PO SCH ×2 (09:46→20:54)
[2016-11-30] MEDS: LIPITOR PO SCH (09:47)
[2016-11-30] MEDS: XANAX PO SCH ×2 (09:47→20:59)
[2016-11-30] MEDS: DECLOMYCIN PO SCH ×2 (09:47→20:55)
[2016-11-30] MEDS: VITAMIN D PO SCH (09:47)
[2016-11-30] MEDS: COLACE PO SCH ×2 (09:47→20:54)
[2016-11-30] MEDS: FOLIC ACID PO SCH (09:47)
[2016-11-30] MEDS: NORVASC PO SCH ×2 (09:47→20:55)
--- NOTE | 2016-11-30 13:55 | PROGRESS NOTE ---
DATE: 11/30/2016 SUBJECTIVE: The patient is resting comfortably in bed. He has no complaints. OBJECTIVE: Vital Signs: Temperature 98 degrees, blood pressure 159/83, heart rate 80, respirations 20, O2 saturation is 96% on room air. General: This is an elderly male, lying in bed, in no acute distress. Head: Normocephalic, atraumatic. Heart: S1, S2. Normal. Regular rate and rhythm. Lungs: Equal air entry bilaterally. No crackles. Abdomen: Positive bowel sounds. Soft, nontender, nondistended. Extremities: No edema. No cyanosis. No calf tenderness. Neurologic: The patient is awake and alert. LABS: White blood cell count 8.3, hemoglobin 11, hematocrit 34, platelets 158,000. Sodium 137, potassium 4.4, chloride 98, CO2 29, BUN 27, creatinine 0.9, glucose 98. ASSESSMENT AND PLAN: 1. Extensive small cell lung carcinoma status post chemotherapy. Management as per the oncologist. 2. Constipation. Continue on scheduled laxative therapy. 3. Hypertension. We will increase the patient's Coreg to 12.5 mg p.o. twice a day. 4. Deep vein thrombosis prophylaxis. Continue on Lovenox. cc: Faviola Shipley MD
[2016-11-30] MEDS: LOVENOX SUBQ SCH (17:51)
[2016-11-30] MEDS: ASPIRIN EC PO SCH (20:54)
[2016-12-01] MEDS: NORCO-7.5 PO PRN ×4 (00:42→14:21)
[2016-12-01] MEDS: DUONEB (A & A) INH SCH ×4 (03:25→15:24)
[2016-12-01 06:34] LABS: HEMATOCRIT 34.3 % (42.0-52.0); HEMOGLOBIN 11.7 g/dL (14.0-18.0); MCH 29.9 PG (27-31); MCHC 34.1 g/dL (33-37); MCV 87.7 FL (81-99); MPV 9.9 FL (7.4-10.4); RBC 3.91 XMIL (4.7-6.1)
[2016-12-01] MEDS: PRILOSEC PO SCH (06:40)
[2016-12-01 06:51] LABS: AGAP 11; BUN 26 mg/dL (8-22); CALCIUM 9.1 mg/dL (8.8-10.2); CHLORIDE 92 mmol/L (98-107); COSMO 270; POTASSIUM 4.5 mmol/L (3.5-5.1); SODIUM 133 mmol/L (136-145); TCO2 30 mmol/L (25-35)
[2016-12-01] MEDS: LIPITOR PO SCH (08:00)
[2016-12-01] MEDS: VITAMIN D PO SCH (08:00)
[2016-12-01] MEDS: COLACE PO SCH (08:00)
[2016-12-01] MEDS: COREG PO SCH (08:00)
[2016-12-01] MEDS: FOLIC ACID PO SCH (08:00)
[2016-12-01] MEDS: NORVASC PO SCH (08:00)
[2016-12-01] MEDS: DECLOMYCIN PO SCH (08:01)
[2016-12-01] MEDS: MIRALAX PO SCH (08:01)
[2016-12-01] MEDS: XANAX PO SCH (08:03)
[2016-12-01] MEDS ORDERED: VITAMIN D PO SCH (09:30)
[2016-12-01 11:57] VITALS: BP 161/78
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
== END 2016-12-01 15:34 | disposition home health service (06) ==
LOC: ED 14:27 → 3S 22:36 → SUATTDRO 22:36 → 3S 22:55 → 3N 11-24 21:06
PROVIDERS: ATTEND Internal Medicine

== ENCOUNTER 2017-01-09 12:28 | Inpatient (IN) ==
[2017-01-09] MEDS ORDERED: ZOFRAN IV ONE (12:59)
[2017-01-09] MEDS ORDERED: NS 1,000 ML IV ONE (12:59)
[2017-01-09 13:19] LABS: ALLEN TEST YES; BE 0.6 mmoll (-3.0-3.0); BLOOD TYPE ARTERIAL; DRAW SITE R RADIAL; METHB 0.7 % (0.0-1.5); O2(CT) 15.8 mL/dL (15.0-23.0); PCO2(98.6) 36 mmHg (35-45); PO2(98.6) 66 mmHg (60-100); SAMPLE BLOOD; SAO2 96.4 % (95.0-100.0); pH(98.6) 7.44 (7.35-7.45)
[2017-01-09 13:20] LABS: MODALITY CANNULA
[2017-01-09 13:30] LABS: INR 1.05; PROTIME 11.1 Seconds (9.2-11.7); PTT 30.8 Seconds (22.0-36.0)
--- NOTE | 2017-01-09 13:38 | Diag Imaging Result Doc PS360 ---
HEAD W/O CONTRAST - 01/09/2017 INDICATION: AMS TECHNIQUE: A CT dose reduction protocol was used. COMPARISON: 10/28/2016 FINDINGS: There is stable chronic microvascular disease. Stable small, old infarctions at the right frontal lobe, left parietal lobe, and left cerebellar hemisphere. Stable old lacunar at the right thalamus. No intracranial mass or hemorrhage. The skull is intact. The sinuses, mastoids, and middle ears are clear. IMPRESSION: No change from prior. Electronically signed by Yuri Clark 01/09/2017 1:35 PM
--- NOTE | 2017-01-09 14:07 | Diag Imaging Result Doc PS360 ---
CHEST-PORTABLE - 01/09/2017 INDICATION: SOB with h/o LLL lung cancer TECHNIQUE: COMPARISON: 12/29/2016 FINDINGS: Stable dilation of the ascending aorta. The pulmonary nodules/masses are not visible on this exam. No infiltrates. No pneumothorax or pleural effusion. Heart size is normal. IMPRESSION: No acute disease. Electronically signed by Yuri Calrk 01/09/2017 2:05 PM
[2017-01-09 15:43] LABS: AGAP 13; ALBUMIN 3.6 g/dL (3.5-5.0); ALKALINE PHOSPHATASE 119 U/L (32-122); BUN 9 mg/dL (8-22); CALCIUM 8.3 mg/dL (8.8-10.2); CHLORIDE 67 mmol/L (98-107); CK PROFILE 60 U/L (24-204); COSMO 207; GOT 24 U/L (10-34); GPT 16 U/L (10-44); POTASSIUM 4.4 mmol/L (3.5-5.1); SODIUM 102 mmol/L (136-145); TCO2 22 mmol/L (25-35); TOTAL BILIRUBIN 0.77 mg/dL (0.20-1.00); TOTAL PROTEIN 5.4 g/dL (6.3-8.3)
[2017-01-09 16:25] LABS: HEMATOCRIT 28.6 % (42.0-52.0); HEMOGLOBIN 11.1 g/dL (14.0-18.0); IMM GRAN# 0.54 X1000 (0.0-0.04); IMM GRAN% 1.8 % (0.0-0.5); LYMPH# 1.11 X1000 (1.2-3.4); LYMPH% 3.8 % (20.5-51.1); MANUAL DIFF NEEDED? NO; MCH 30.7 PG (27-31); MCHC 38.8 g/dL (33-37); MCV 79.2 FL (81-99); MONO# 0.57 X1000 (0.11-0.59); MONO% 1.9 % (1.7-9.3); MPV 9.8 FL (7.4-10.4); NEUT% 92.5 % (42.2-75.2); PLT 206 X1000 (130-400); RBC 3.61 XMIL (4.7-6.1)
[2017-01-09] MEDS ORDERED: VANCOMYCIN 1 GM/NS 1 GM/250 ML IVPB IV ONE (16:32)
[2017-01-09] MEDS ORDERED: ZOSYN 3.375 GM/NS 3.375 GM/50 ML IVPB IV ONE (16:32)
[2017-01-09] MEDS ORDERED: MAGNESIUM SULFATE 2 GM/S.W.I. 2 GM/50 ML IVPB IV ONE (16:34)
[2017-01-09 16:35] LABS: URINE CULTURE NEEDED? NO; URINE MICRO REVIEW NEEDED? NO; URINE SOURCE CATH
[2017-01-09 16:39] LABS: BILIRUBIN URINE NEGATIVE (NEGATIVE); BLOOD URINE NEGATIVE (NEGATIVE); COLOR YELLOW; GLUCOSE URINE 100 mg/dL (NEGATIVE); LEUKOCYTES URINE NEGATIVE (NEGATIVE); NITRITE URINE NEGATIVE (NEGATIVE); PROTEIN URINE 30 mg/dL (NEGATIVE); TURBIDITY URINE CLEAR (CLEAR); UROBILINOGEN URINE NORMAL (NORMAL)
[2017-01-09 16:40] LABS: UR EPITHELIAL CELLS <10 /HPF (<10); URINE BACTERIA NEGATIVE /HPF; URINE RBC <10 /HPF (<10); URINE WBC <10 /HPF (<10)
--- NOTE | 2017-01-09 16:40 | PROVIDER DOCUMENTATION ---
This chart was entered by Maria De Jesus Melara Scribe, acting as scribe for Clau Self MD. HPI-General Adult - General Chief Complaint: Shortness of Breath Stated Complaint: weakness n/v Time Seen by Provider: 01/09/17 12:36 Source: patient Allergies/Adverse Reactions: Patient Allergies Allergy/AdvReac Type Severity Reaction Status Date / Time acetaminophen [From Fioricet] Allergy other Verified 01/09/17 12:54 butalbital [From Fioricet] Allergy other Verified 01/09/17 12:54 caffeine [From Fioricet] Allergy other Verified 01/09/17 12:54 iodine Allergy Unknown Verified 01/09/17 12:54 Home Medications: Home Medication List Medication Instructions Recorded Confirmed Last Taken Type Aspirin [Aspir-Low] 81 mg PO QHS 10/29/16 01/09/17 01/08/17 21:00 History Alprazolam [Xanax] 1 mg PO TID #60 tab 12/01/16 01/09/17 01/09/17 09:30 Rx Amlodipine [Norvasc] 5 mg PO BID #60 tablet 12/01/16 01/09/17 01/08/17 21:00 Rx Carvedilol [Coreg] 12.5 mg PO Q12HR #60 tablet 12/01/16 01/09/17 01/08/17 21:00 Rx Ergocalciferol (Vitamin D2) 50,000 unit PO Q7D #10 capsule 12/01/16 01/09/17 Rx [Vitamin D] Escitalopram [Lexapro] 10 mg PO DAILY #30 cap 12/01/16 01/09/17 01/08/17 21:00 Rx Folic Acid 1 mg PO DAILY #30 tablet 12/01/16 01/09/17 01/08/17 09:00 Rx Hydrocodone/Acetaminophen [[place] 1 each PO Q4H PRN PRN #30 tablet 12/01/1601/0901/09/17 09:30 Rx 10-325 Tablet] LISINOpril [Prinivil] 10 mg PO QHS #30 tab 12/01/16 01/09/17 01/08/17 Rx Fentanyl [Duragesic] 1 each TD DIRECTED 01/09/17 01/09/17 01/07/17 History - History of Present Illness -Gen Adult Nature of Presenting Problems: 51 yo M presents to the ER with complaint of weakness and nausea/vomiting. Pt has L lower lobe lung cancer diagnosed x5 weeks ago. States two episodes of vomiting this morning with coffe-ground emesis. Is currently on chemo. Associated Symptoms: reports: nausea, vomiting, weakness Review of Systems - Adult - REVIEW OF SYSTEMS - ADULT Constitutional: denies: chills, fever Eyes: reports: no symptoms reported Ears, Nose, Mouth & Throat: reports: no symptoms reported Cardiovascular: denies: chest pain, palpitations Respiratory: denies: cough, shortness of breath Gastrointestinal: reports: hematemesis, nausea, vomiting. denies: abdominal pain, diarrhea Genitourinary: reports: no symptoms reported Musculoskeletal: reports: no symptoms reported Integumentary: reports: no symptoms reported Neurological: reports: no symptoms reported Psychiatric: reports: no symptoms reported Endocrine: reports: no symptoms reported Hematologic/Lymphatic: reports: no symptoms reported Allergic/Immunologic: reports: no symptoms reported All Other Systems: Reviewed and Negative Past History - Adult - PAST MEDICAL HISTORY-ADULT Review of Records: reports: Nursing Assessment Review, Medications Reviewed Other Conditions: reports: denies history - IMMUNIZATION STATUS Childhood Immunizations: See Nurse Assessment Flu Vaccine: See Nurse Assessment Physical Exam-General - PHYSICAL EXAM-ADULT Initial Vital Signs Reviewed: Yes - CONSTITUTIONAL General Appearance: alert, no apparent distress, lethargic - EYES Eyes: PERRL/EOMI, pink conjunctivae - HEAD, EARS, NOSE, MOUTH & THROAT HENMT: normocephalic/atraumatic, normal ENT inspection - NECK Neck: supple, normal inspection - RESPIRATORY Respiratory: decreased breath sounds (L lower lobe), crackles, rhonchi - CARDIOVASCULAR Cardiovascular: normal peripheral pulses, regular rate, rhythm - GASTROINTESTINAL (ABDOMEN) Abdominal Exam: normal bowel sounds, non tender, soft - MUSCULOSKELETAL Back Exam: no CVA tenderness, no vertebral tenderness Extremity: normal range of motion, non-tender, normal gait, normal inspection - SKIN Integumentary: warm/dry. negative: normal color (pale) - NEUROLOGIC Neurologic: grossly normal, no motor/sensory deficits - PSYCHIATRIC Psych/Mental Status: normal mood/affect, normal thought content, normal thought process, oriented x 3 Progress - PLAN OF CARE/RESULTS Progress/Plan/Lab Results: Vital Signs - 8 hr 01/09/17 12:50 Temperature 98.6 F Pulse Rate 80 Respiratory Rate 20 Blood Pressure 173/97 O2 Sat by Pulse Oximetry 94 L Result Diagrams: 01/09/17 12:55 01/09/17 12:55 - EKG 1 Time of EKG reading by physician:: 12:43 EKG Read and Signed by:: Clau Self EKG Interpretation (*Must complete 3 of following elements*): Abnormal ( possible L atrial enlargement) Rate: 81 Rhythm: normal sinus rhythm [place]: normal QRS: normal SD Interval: prolonged (QT) ST Wave: non-specific ST changes (T wave abnormality, consider lateral ischemia) - XRAY 1 XRAY Study: Chest Impression: Normal (NAD, per radiologist) - CT/MRI 1 CT Study: Head Impression: Normal (no changes from prior, per radiologist) Comparison with other Films: no changes - CONSULTS/PCP/HOSPITALIST Notification #1 *Consult/PCP/Hospitalist*: Beckie/Dr. Timmons Time Discussed: 16:35 Consult Disposition: Admit Departure - Departure Date of Disposition Decision: 01/09/17 Time of Disposition Decision: 16:33 DIAGNOSIS: Shortness of breath, Lung cancer, Hyponatremia, CHF (congestive heart failure) , Hypomagnesemia Disposition: ADMITTED INPATIENT 09 Certified Medical Emergency: Emergent Condition: Stable Referrals and Follow-Ups: None,PCP [Primary Care Provider] - - Critical Care Note This patient required my direct & personal management of CC.: No This chart was documented by the indicated scribe, (Maria De Jesus Melara Scribe) and accurately reflects the services I performed and decisions made by me, Clau Self MD, as attested by the provider's signature.
[2017-01-09 17:04] LABS: UR AMPHETAMINES QUAL NONE DETECTED (NONE DETECT); UR BARBITUATES QUAL NONE DETECTED (NONE DETECT); UR BENZODIAZEPIN QUAL PRESUMPTIVE POSITIVE (NONE DETECT); UR CANNABINOIDS QUAL NONE DETECTED (NONE DETECT); UR COCAINE QUAL NONE DETECTED (NONE DETECT); UR METHADONE QUAL NONE DETECTED (NONE DETECT); UR OPIATES QUAL PRESUMPTIVE POSITIVE (NONE DETECT); UR OXYCODONE QUAL NONE DETECTED (NONE DETECT); UR PCP QUAL NONE DETECTED (NONE DETECT)
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
[2017-01-09 19:00] LABS: UR CREAT RANDOM 53.8 mg/dL (14-26)
[2017-01-09] MEDS ORDERED: DURAGESIC 12 MICROGM/HR PATCH TD SCH (19:13)
[2017-01-09] MEDS ORDERED: ZOFRAN IV PRN (19:13)
[2017-01-09] MEDS ORDERED: VITAMIN D PO SCH (19:13)
[2017-01-09] MEDS ORDERED: VANCOMYCIN IV PER PHARMACY MISC SCH (19:13)
[2017-01-09] MEDS: NORCO-10 PO PRN (19:23)
[2017-01-09] MEDS: MAGNESIUM SULFATE 2 GM/S.W.I. 2 GM/50 ML IVPB IV ONE ×2 (19:23→21:07)
[2017-01-09] MEDS: NORVASC PO SCH (21:06)
[2017-01-09] MEDS: ASPIRIN EC PO SCH (21:06)
[2017-01-09] MEDS: COREG PO SCH (21:06)
[2017-01-09] MEDS: PRILOSEC PO SCH (21:06)
[2017-01-09] MEDS: PRINIVIL PO SCH (21:07)
[2017-01-09] MEDS: NS 1,000 ML IV SCH (21:07)
[2017-01-09] MEDS: VANCOMYCIN 1 GM/NS 1 GM/250 ML IVPB IV SCH (22:21)
[2017-01-09] MEDS: ATROVENT NEB INH SCH (23:06)
[2017-01-09] MEDS: XOPENEX NEB INH SCH (23:07)
[2017-01-10] MEDS: ATROVENT NEB INH SCH ×7 (00:04→23:42)
[2017-01-10] MEDS: MUCOMYST 20% INH SCH ×3 (00:05→19:32)
[2017-01-10] MEDS: ZOSYN 3.375 GM/NS 3.375 GM/50 ML IVPB IV SCH ×5 (00:05→23:04)
[2017-01-10] MEDS: XOPENEX NEB INH SCH ×7 (00:06→23:43)
[2017-01-10] MEDS: PULMICORT INH SCH ×3 (00:06→19:32)
[2017-01-10 05:26] LABS: INR 1.04; PROTIME 10.9 Seconds (9.2-11.7)
[2017-01-10 05:57] LABS: AGAP 13; ALBUMIN 3.2 g/dL (3.5-5.0); ALKALINE PHOSPHATASE 106 U/L (32-122); BUN 8 mg/dL (8-22); CALCIUM 7.8 mg/dL (8.8-10.2); CHLORIDE 71 mmol/L (98-107); COSMO 213; GOT 23 U/L (10-34); GPT 16 U/L (10-44); MAGNESIUM 1.7 mg/dL (1.5-2.7); POTASSIUM 3.9 mmol/L (3.5-5.1); TCO2 22 mmol/L (25-35); TOTAL PROTEIN 5.2 g/dL (6.3-8.3)
[2017-01-10 05:58] LABS: SODIUM 106 mmol/L (136-145)
[2017-01-10 07:00] LABS: BASO% 0.1 % (0.0-0.8); HEMATOCRIT 27.8 % (42.0-52.0); HEMOGLOBIN 10.4 g/dL (14.0-18.0); LYMPH# 1.41 X1000 (1.2-3.4); LYMPH% 5.1 % (20.5-51.1); MANUAL DIFF NEEDED? YES; MCHC 37.4 g/dL (33-37); MONO# 1.07 X1000 (0.11-0.59); MONO% 3.9 % (1.7-9.3); MPV 10.3 FL (7.4-10.4); NEUT% 90.9 % (42.2-75.2); PLT 198 X1000 (130-400); RBC 3.35 XMIL (4.7-6.1)
[2017-01-10] MEDS: LEXAPRO PO SCH (08:50)
[2017-01-10] MEDS: NORVASC PO SCH ×2 (08:50→20:22)
[2017-01-10] MEDS: FOLIC ACID PO SCH (08:50)
[2017-01-10] MEDS: VANCOMYCIN 1 GM/NS 1 GM/250 ML IVPB IV SCH ×2 (08:50→21:08)
[2017-01-10] MEDS: PRILOSEC PO SCH ×2 (08:50→20:22)
[2017-01-10] MEDS: COREG PO SCH ×2 (08:50→20:23)
[2017-01-10] MEDS: XANAX PO SCH ×3 (08:50→17:04)
--- NOTE | 2017-01-10 09:22 | PROGRESS NOTE ---
DATE: 01/10/2017 SUBJECTIVE: Mr. Singh does feel a little better he says. Breathing a little better. Still very tired. His sodium came up to 108. PHYSICAL EXAMINATION: General: On examination, he is awake and alert but he easy to go back to sleep. He is awake. He is very lethargic. Vital Signs: Temperature 98.1 degrees, pulse 78, respirations 20, blood pressure 179/83. HEENT: Pupils are equal. CVP less than 6 cm. Lungs: Clear in all lung de anda. Cardiovascular Examination: Regular rhythm and rate without murmur or S3. Abdomen: Soft. Skin: Is warm and dry. Is and Os: His weight has gone up from 115 to 138. I am not sure if that is believable but his weight today was 138. Output 2500 mL. LAB: White count 27,550, hematocrit 27, platelet count 198,000. Sodium 108, potassium 3.9, chloride 71, bicarb 22, BUN 8, creatinine 0.8, calcium 7.8, albumin 3.2. B12 greater than 2000. T4 was 1.3 and TSH 1.62. Cortisol 20. Chest x-ray from yesterday, no acute disease. ASSESSMENT AND PLAN: 1. Lung cancer, status post chemotherapy. 2. Respiratory dysfunction, bronchospasm, wheezing, underlying chronic obstructive pulmonary disease and lung cancer. Treating him empirically for respiratory tract infection. Denies any infiltrate on x-ray. 3. Profound hyponatremia, which is improved. Appears to be volume contracted. Also has a history of syndrome of inappropriate antidiuretic hormone secretion in the past but at this point, we need to give him volume. 4. Profound hypomagnesemia. I also gave him some magnesium. His magnesium level is up to 1.7, creatinine 0.8 which is encouraging. 5. Protein calorie malnutrition. 6. History of hypertension. 7. History of previous cerebrovascular accident with a right partial hemiparesis. We will continue present regimen. 8. Review of his orders. Keep him on his vancomycin and Zosyn. I will give him magnesium oxide 400 mg twice a day. Continue normal saline at 125 mL an hour for now. Prinivil 10 mg at bedtime. He has got a fentanyl patch at 12 mcg every 72 hours. He is on Lexapro 10 mg a day, vitamin D3 50,000 units weekly, Coreg 12.5 mg by mouth every 12 hours, aspirin 81 mg a day. Continue his bronchodilators. He is also on Pulmicort steroid inhaler. cc: Sam Timmons MD
[2017-01-10] MEDS: NS 1,000 ML IV SCH ×2 (09:53→17:04)
[2017-01-10 09:55] LABS: BANDS 2 % (0-1); LYMPHS 4 % (21-51); MONO 2 % (1-9)
[2017-01-10 09:56] LABS: LARGE PLATELETS 1+
--- NOTE | 2017-01-10 10:37 | Diag Imaging Result Doc PS360 ---
CHEST-PORTABLE - 01/10/2017 INDICATION: lung cancer TECHNIQUE: COMPARISON: 01/09/2017 FINDINGS: No infiltrates. No change from prior. IMPRESSION: No change from prior. Electronically signed by Yuri Clark 01/10/2017 10:34 AM
[2017-01-10] MEDS: NORCO-10 PO PRN ×2 (12:04→20:22)
[2017-01-10] MEDS: ASPIRIN EC PO SCH (20:22)
[2017-01-10] MEDS: PRINIVIL PO SCH (20:22)
[2017-01-10] MEDS: DECLOMYCIN PO SCH (20:25)
[2017-01-11] MEDS: NS 1,000 ML IV SCH ×3 (02:46→18:11)
[2017-01-11] MEDS: NORCO-10 PO PRN ×2 (03:25→22:48)
[2017-01-11] MEDS: ATROVENT NEB INH SCH ×6 (03:49→23:18)
[2017-01-11] MEDS: XOPENEX NEB INH SCH ×6 (03:49→23:18)
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
[2017-01-11] MEDS: ZOSYN 3.375 GM/NS 3.375 GM/50 ML IVPB IV SCH ×4 (05:21→22:49)
[2017-01-11 05:54] LABS: AGAP 8; BUN 8 mg/dL (8-22); CALCIUM 7.5 mg/dL (8.8-10.2); CHLORIDE 84 mmol/L (98-107); COSMO 235; MAGNESIUM 1.4 mg/dL (1.5-2.7); POTASSIUM 3.7 mmol/L (3.5-5.1); TCO2 25 mmol/L (25-35)
[2017-01-11 05:56] LABS: SODIUM 117 mmol/L (136-145)
--- NOTE | 2017-01-11 06:14 | EKG Report ---
Test Performed on : 01/09/2017 6:23:37 PM Test Reason : CP/Re-Ordered Blood Pressure : / mmHG Vent. Rate : 069 BPM Atrial Rate : 069 BPM P-R Int : 152 ms QRS Dur : 096 ms QT Int : 364 ms P-R-T Axes : 068 076 059 degrees QTc Int : 390 ms Normal sinus rhythm. with sinus arrhythmia. Normal ECG When compared with ECG of 09-JAN-2017 12:43, (Unconfirmed) Non-specific change in ST segment in Lateral leads T wave inversion no longer evident in Lateral leads QT has shortened Unconfirmed Result
[2017-01-11] MEDS: MUCOMYST 20% INH SCH ×2 (07:30→19:52)
[2017-01-11] MEDS: PULMICORT INH SCH ×2 (07:30→19:52)
--- NOTE | 2017-01-11 07:52 | EKG Report ---
Test Performed on : 01/09/2017 12:43:23 PM Test Reason : No Order in [employer] [facility] Blood Pressure : / mmHG Vent. Rate : 081 BPM Atrial Rate : 081 BPM P-R Int : 172 ms QRS Dur : 098 ms QT Int : 400 ms P-R-T Axes : 078 058 098 degrees QTc Int : 464 ms Normal sinus rhythm. Possible Left atrial enlargement T wave abnormality, consider lateral ischemia Prolonged QT Abnormal ECG When compared with ECG of 20-NOV-2016 15:03, Nonspecific T wave abnormality, improved in Anterior leads Unconfirmed Result
[2017-01-11] MEDS ORDERED: MAGNESIUM SULFATE 2 GM/S.W.I. 2 GM/50 ML IVPB IV ONE (08:16)
--- NOTE | 2017-01-11 08:43 | PROGRESS NOTE ---
DATE: 01/11/2017 SUBJECTIVE: He was sleeping, difficult to arouse, very lethargic this morning. OBJECTIVE: Vital signs: Temperature 98.3 degrees, pulse 65, respirations 18, blood pressure 140/72. Neck: CVP less than 6 cm. Lungs: With scattered rhonchi, but respiratory rate was about 18. Abdomen: Soft. Cardiovascular: Regular rhythm and rate, without murmur or S3. Urine output over 3.5 L. LAB: Reviewed from yesterday, elevated white count at 25,550, hematocrit 27, platelet count a 198,000. Blood sugar is 112, 115, 117. Magnesium was 1.4. Sodium has come up to 117, potassium 3.7, chloride 84. Chest x-ray from yesterday, no change, no infiltrates. ASSESSMENT AND PLAN: 1. Stage IV small cell lung cancer, status post cycle 2 of therapy she had 3 weeks ago. She is due for cycle 3 of therapy this coming week. Therapy deferred pending resolution of this acute event. He has hyponatremia. Will continue get the sodium up and continue 2. Hyponatremia. Appears to be hypovolemic hyponatremic and I suspect he has an element of syndrome of inappropriate antidiuretic hormone secretion as well. He has been hydrated. He is on demeclocycline and consider Samsca. 3. Bone metastasis, pain management. We are going to have to watch. He appears to be pretty lethargic. 4. Anxiety, on Xanax. 5. Leukocytosis. I do not see evidence of an infiltrate. Review of his orders. Will continue vancomycin and Zosyn. Review of his medication: He is on Zosyn 3.375 mg IV q.6 hours, vancomycin 1 g q.12 hours, Prilosec 40 mg b.i.d. He is on normal saline at 125 mL an hour, Prinivil 10 mg at bedtime, got a fentanyl patch at 12 mcg q. 72h hours, Lexapro 10 mg a day, vitamin D 31067 units p.o. q. week, demeclocycline 300 mg p.o. q.12h, Coreg 12.5 mg q.12, Pulmicort 0.5 inhaler b.i.d., aspirin 81 mg a day, Norvasc 5 mg b.i.d., and Xanax 1 mg t.i.d. cc: Sam Timmons MD
[2017-01-11] MEDS: NORVASC PO SCH ×2 (09:54→21:46)
[2017-01-11] MEDS: POTASSIUM CHLORIDE 20 MEQ/SWI 20 MEQ/100 ML IVPB IV SCH ×2 (09:54→12:44)
[2017-01-11] MEDS: LEXAPRO PO SCH (09:54)
[2017-01-11] MEDS: XANAX PO SCH ×3 (09:54→17:11)
[2017-01-11] MEDS: COREG PO SCH ×2 (09:55→21:46)
[2017-01-11] MEDS: DECLOMYCIN PO SCH ×2 (09:55→22:19)
[2017-01-11] MEDS: PRILOSEC PO SCH ×2 (09:55→21:47)
[2017-01-11] MEDS: FOLIC ACID PO SCH (09:55)
[2017-01-11] MEDS: POTASSIUM CHLORIDE 20% LIQUID PO SCH (09:56)
[2017-01-11] MEDS: MAG-OX PO SCH ×2 (10:23→21:46)
[2017-01-11] MEDS: VANCOMYCIN 1.2 GM in NS 250 ML IV SCH ×2 (11:08→22:19)
[2017-01-11] MEDS ORDERED: DURAGESIC 12 MICROGM/HR PATCH TD SCH (20:00)
[2017-01-11] MEDS: PRINIVIL PO SCH (21:47)
[2017-01-11] MEDS: ASPIRIN EC PO SCH (21:47)
[2017-01-12] MEDS: NS 1,000 ML IV SCH ×3 (02:44→22:13)
[2017-01-12] MEDS: XOPENEX NEB INH SCH ×6 (04:21→23:25)
[2017-01-12] MEDS: ATROVENT NEB INH SCH ×6 (04:21→23:24)
[2017-01-12] MEDS: ZOSYN 3.375 GM/NS 3.375 GM/50 ML IVPB IV SCH ×3 (05:07→16:15)
[2017-01-12 05:44] LABS: AGAP 8; BUN 6 mg/dL (8-22); CHLORIDE 92 mmol/L (98-107); COSMO 252; MAGNESIUM 1.6 mg/dL (1.5-2.7); POTASSIUM 3.2 mmol/L (3.5-5.1); SODIUM 127 mmol/L (136-145); TCO2 27 mmol/L (25-35)
[2017-01-12] MEDS: MUCOMYST 20% INH SCH ×2 (07:26→20:03)
[2017-01-12] MEDS: PULMICORT INH SCH ×2 (07:27→20:03)
[2017-01-12] MEDS: VANCOMYCIN 1.2 GM in NS 250 ML IV SCH ×2 (09:55→22:59)
[2017-01-12] MEDS: NORVASC PO SCH ×2 (09:55→22:13)
[2017-01-12] MEDS: DECLOMYCIN PO SCH ×2 (09:55→22:12)
[2017-01-12] MEDS: PRILOSEC PO SCH ×2 (09:55→22:11)
[2017-01-12] MEDS: LEXAPRO PO SCH (09:56)
[2017-01-12] MEDS: NORCO-10 PO PRN ×2 (09:56→22:12)
[2017-01-12] MEDS: FOLIC ACID PO SCH (09:56)
[2017-01-12] MEDS: COREG PO SCH ×2 (09:56→22:12)
[2017-01-12] MEDS: POTASSIUM CHLORIDE 20% LIQUID PO SCH (09:56)
[2017-01-12] MEDS: MAG-OX PO SCH ×2 (10:04→22:11)
[2017-01-12] MEDS: XANAX PO SCH ×3 (10:05→16:15)
--- NOTE | 2017-01-12 10:30 | PROGRESS NOTE ---
DATE: 01/12/2017 SUBJECTIVE: Mr. Singh is awake this morning and alert and says he feels comfortable, no pain, breathing comfortably. OBJECTIVE: Vital Signs: Temp 98.7, pulse 59, respirations 19, blood pressure 164/69. HEENT: Pupils are equal, round. CVP less than 6 cm. Lungs: Clear in all lung de anda. Cardiovascular exam: Regular rhythm and rate without murmur or S3. Abdomen: Soft. Skin: Warm and dry. : Urine output 4700. LAB: White count 27,550, hematocrit 27, platelet count 198,000. Sodium has come up to 127, potassium 3.2, chloride 92, BUN 6, creatinine 0.8. IMAGING: Chest x-ray from 01/10: No infiltrates and no change. ASSESSMENT AND PLAN: 1. Stage IV small cell lung cancer status post cycle 2 of therapy about 4 weeks ago now and is due for third cycle, which will defer pending the resolution of his hyponatremia. He appears much better. Neurologically much less lethargic and stronger. He would like to go home; that is his goal. 2. Hyponatremia. I suspect a combination of syndrome of inappropriate diuretic hormone and volume contraction. We did hydrate him. Dr. Diamond put him back on demeclocycline, and he showed pretty impressive improvement. Continue present measures. 3. Bone metastasis. Pain management looks good. Note that he had 2 patches of fentanyl when he came in, so I think cutting back on his fentanyl has helped him. 4. Anxiety. He is on Xanax. 5. Nutrition: Encourage oral intake. Encourage physical therapy. Hope to be able to get him home on to review his medications. We did supplement magnesium and potassium yesterday. MEDICATIONS: He is on Prilosec 40 mg twice a day. He is on Mag-Ox 800 mg twice daily and Prinivil 10 mg at bedtime. Folic acid 1 mg a day. Hydrocodone 10 mg 1 every 4 hours p.r.n. He is on a fentanyl 12 mcg patch every 72 hours. Lexapro 10 mg a day. Vitamin D 50,000 units every week. Demeclocycline 300 mg every 12 hours. Coreg 12.5 mg every 12 hours. He has Pulmicort inhaler, aspirin 81 mg a day, Norvasc 5 mg twice daily and Xanax 1 mg three times a day. Blood pressures looked fairly well controlled. cc: Sam Timmons MD
[2017-01-12] MEDS: PRINIVIL PO SCH (22:12)
[2017-01-12] MEDS: ASPIRIN EC PO SCH (22:12)
[2017-01-13] MEDS: ZOSYN 3.375 GM/NS 3.375 GM/50 ML IVPB IV SCH ×3 (00:22→10:47)
[2017-01-13] MEDS: ATROVENT NEB INH SCH ×3 (03:25→11:18)
[2017-01-13] MEDS: XOPENEX NEB INH SCH ×3 (03:25→11:18)
[2017-01-13] MEDS: NORCO-10 PO PRN ×2 (03:39→09:24)
[2017-01-13 05:39] LABS: MANUAL DIFF NEEDED? NO
[2017-01-13 06:01] LABS: BASO% 0.3 % (0.0-0.8); EOS# 0.03 X1000 (0.0-0.7); EOS% 0.3 % (0.0-10.0); HEMATOCRIT 25.1 % (42.0-52.0); HEMOGLOBIN 8.6 g/dL (14.0-18.0); IMM GRAN# 0.06 X1000 (0.0-0.04); IMM GRAN% 0.5 % (0.0-0.5); LYMPH# 1.42 X1000 (1.2-3.4); LYMPH% 12.5 % (20.5-51.1); MCH 30.3 PG (27-31); MCHC 34.3 g/dL (33-37); MCV 88.4 FL (81-99); MONO# 0.92 X1000 (0.11-0.59); MONO% 8.1 % (1.7-9.3); MPV 9.8 FL (7.4-10.4); NEUT% 78.3 % (42.2-75.2); PLT 198 X1000 (130-400); RBC 2.84 XMIL (4.7-6.1)
[2017-01-13 06:27] LABS: AGAP 9; BUN 6 mg/dL (8-22); CALCIUM 8.4 mg/dL (8.8-10.2); CHLORIDE 95 mmol/L (98-107); COSMO 261; MAGNESIUM 1.6 mg/dL (1.5-2.7); POTASSIUM 3.6 mmol/L (3.5-5.1); SODIUM 132 mmol/L (136-145); TCO2 28 mmol/L (25-35)
[2017-01-13] MEDS: MUCOMYST 20% INH SCH (07:44)
[2017-01-13] MEDS: PULMICORT INH SCH (07:44)
--- NOTE | 2017-01-13 09:19 | DISCHARGE SUMMARY ---
ADMISSION DATE: 01/09/2017 DISCHARGE DATE: 01/13/2017 HISTORY AND HOSPITAL COURSE: This is a 51-year-old male who came in short of breath for the last couple of days. It got quite a bit worse and very fatigued. Has a history of previous CVA, right hemiparesis, hypertension, anxiety, chronic pain. Admitted to the hospital at [facility] in October 2016 for hyponatremia. Hyponatremia was believed to be related to volume depletion but also it looked like he had some SIADH . He presented with lethargy and short of breath. We found he had 2 fentanyl patches on his left arm and so we removed them. He is supposed to have 1. 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 Littlejohn. The patient also had significant hyponatremia, profound hyponatremia, and was given fluids and showed slow resolution. So, started on demeclocycline and sodium came back to 132. He was ambulating and eating and felt like he wanted to go home. DISCHARGE MEDICATIONS: He will be on Xanax 1 mg t.i.d., Norvasc 5 mg b.i.d., aspirin 81 mg a day, Pulmicort 0.5 mg b.i.d., Coreg 12.5 mg q.12 hours, demeclocycline 300 mg q.12 hours, vitamin D 88302 units weekly, Lexapro 10 mg a day, Duragesic patch 12 mcg patch q.72 hours, folic acid 1 mg daily, Jasper 10 mg 1 q.4 hours p.r.n. ipratropium bromide 0.5 mg inhaler q.4 hours as needed, Xopenex 1.2 inhaler q.4 hours as needed, Prinivil 10 mg at bedtime, Mag-Ox next 600 mg b.i.d., which was started this admission, omeprazole 40 mg b.i.d. FOLLOW-UP: He will follow up with Dr. Littlejohn . cc: Sam Timmons MD
[2017-01-13] MEDS: MAG-OX PO SCH (09:23)
[2017-01-13] MEDS: PRILOSEC PO SCH (09:23)
[2017-01-13] MEDS: NORVASC PO SCH (09:23)
[2017-01-13] MEDS: COREG PO SCH (09:24)
[2017-01-13] MEDS: LEXAPRO PO SCH (09:24)
[2017-01-13] MEDS: DECLOMYCIN PO SCH (09:24)
[2017-01-13] MEDS: POTASSIUM CHLORIDE 20% LIQUID PO SCH (09:24)
[2017-01-13] MEDS: FOLIC ACID PO SCH (09:24)
[2017-01-13] MEDS: XANAX PO SCH (09:25)
[2017-01-13] MEDS: VANCOMYCIN 1.2 GM in NS 250 ML IV SCH (10:30)
[2017-01-13 11:35] VITALS: BP 154/77
== END 2017-01-13 14:21 | disposition home or self-care (01) ==
LOC: SUPCPDRO → ED 12:28 → 3S 18:49 → SUATTDRO 18:49 → 3S 19:33
PROVIDERS: ATTEND Internal Medicine